=== PATIENT | female | born 1995 | race Caucasian/White ===

== ENCOUNTER 2016-06-25 19:57 | Emergency (ER) | payer OTHER, MEDICAID ==
[2016-06-25] MEDS ORDERED: SODIUM CHLORIDE 0.9% 1,000 ML IV ONE (20:54)
[2016-06-25] MEDS ORDERED: ONDANSETRON 4 MG/2 ML VIAL IVP STA (22:18)
[2016-06-25] MEDS ORDERED: ONDANSETRON 4 MG/2 ML VIAL ONE (22:39)
[2016-06-25] MEDS ORDERED: ONDANSETRON ODT 4 MG Prepack 2 TL PRN (23:13)
[2016-06-25] MEDS ORDERED: ONDANSETRON ODT 4 MG Prepack 2 TL ONE (23:15)
== END 2016-06-25 23:35 | disposition home or self-care (01) ==
DX: K52.9 Noninfective gastroenteritis and colitis, unspecified (principal)

== ENCOUNTER 2016-08-14 15:38 | Emergency (ER) | payer OTHER, MEDICAID | END 2016-08-14 16:45 | disposition left against medical advice (07) | DX: R10.30 Lower abdominal pain, unspecified (principal); Z53.21 Procedure and treatment not carried out due to patient leaving prior to being seen by health care provider ==

== ENCOUNTER 2016-08-31 11:42 | Emergency (ER) | payer OTHER, MEDICAID ==
[2016-08-31 11:46] VITALS: BP 115/60
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
[2016-08-31] MEDS ORDERED: ACETAMINOPHEN 325 MG TABLET PO ONE (12:30)
[2016-08-31] MEDS ORDERED: IBUPROFEN 600 MG TABLET PO ONE (12:30)
[2016-08-31] MEDS: IBUPROFEN 600 MG TABLET PO STA (12:33)
[2016-08-31] MEDS: ACETAMINOPHEN 325 MG TABLET PO STA (12:33)
--- NOTE | 2016-08-31 13:15 | XRAY Preliminary Report ---
Exam: XR Chest 2 View PA/LAT IMPRESSION: Negative 2-view chest radiography. [facility] SITE ID: [id number]
--- NOTE | 2016-08-31 13:17 | XRAY Report ---
EXAM: CHEST RADIOGRAPHY EXAM DATE: 08/31/2016 12:47 PM. CLINICAL HISTORY: Pain with breathing left side. COMPARISON: None. TECHNIQUE: 2 views. FINDINGS: Lungs/Pleura: No focal opacities evident. No pleural effusion. No pneumothorax. Normal volumes. Mediastinum: Heart and mediastinal contours are unremarkable. Bony thorax: Unremarkable. IMPRESSION: Negative 2-view chest radiography. [facility] Referring Provider Line: [phone] SITE ID: [id number]
== END 2016-08-31 12:58 | disposition home or self-care (01) ==
LOC: ED 11:42
DX: S00.83XA Contusion of other part of head, initial encounter (principal); S40.022A Contusion of left upper arm, initial encounter; R07.89 Other chest pain; Y04.2XXA Assault by strike against or bumped into by another person, initial encounter
CPT/HCPCS: 71020; 99283

== ENCOUNTER 2016-11-27 14:29 | Emergency (ER) | payer OTHER, MEDICAID ==
--- NOTE | 2016-11-27 14:31 | ED Physician Documentation ---
PD HPI NVD - Stated complaint Stated Complaint: VOMITING - History obtained from History obtained from: Patient - History of Present Illness Timing - onset: Yesterday Timing - duration: Days (2-3 days of nausea, then with vomiting last night and some today. Had eaten a lot of cake prior to onset of nausea. Also had some marijuana, which she had not had for 2 years. Had nausea and vomiting, but has persisted. No diarrhea. She had normal recent period, but is concerned about potential . No dysuria.) Timing - details: Gradual onset, Waxing and waning Associated symptoms: Loss of appetite. No: Fever, Abdominal pain, Chest pain, Near syncope / syncope, Weight loss, Dysuria, Vaginal bleeding Contributing factors: No: Sick contact, Bad food, Travel, Recent antibiotics, Alcohol use (but had some marijuana use prior to onset symptoms.) Improved by: No: Eating, Vomiting Worsened by: Eating Similar symptoms before: Diagnosis () Recently seen: Not recently seen Review of Systems Constitutional: denies: Fever, Chills Nose: denies: Rhinorrhea / runny nose, Congestion Throat: denies: Sore throat Respiratory: denies: Cough GI: reports: Nausea, Vomiting. 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 HEENT: Myringotomy (tubes), Tonsil/Adenoidectomy - Present Medications Home Medications: Ambulatory Orders Medication Instructions Recorded Confirmed Ondansetron Odt [Zofran] 4 mg TL Q6H PRN #10 tablet 06/25/16 Ibuprofen [Motrin] 600 mg PO TID #20 tab 08/31/16 Tramadol HCl 50 mg PO Q6H PRN #20 tablet 08/31/16 Ondansetron Odt [Zofran] 4 mg TL Q6H PRN #15 tablet 11/27/16 - Allergies Allergies/Adverse Reactions: Allergies Allergy/AdvReac Type Severity Reaction Status Date / Time No Known Drug Allergies Allergy Verified 11/27/16 14:42 - Social History Does the pt smoke?: No Smoking Status: Never smoker Does the pt drink ETOH?: No Does the pt have substance abuse?: No - Immunizations Immunizations are current?: Yes - POLST Patient has POLST: No PD ED PE NORMAL - Vitals Vital signs reviewed: Yes - General General: Alert and oriented X 3, No acute distress, Well developed/nourished - HEENT HEENT: Moist mucous membranes, Pharynx benign - Neck Neck: Supple, no meningeal sign, No adenopathy - Cardiac Cardiac: RRR (mild tachy), No murmur - Respiratory Respiratory: Clear bilaterally - Abdomen Abdomen: Normal bowel sounds, Soft, Non tender, Non distended, No organomegaly - Female Female : Deferred - Rectal Rectal: Deferred - Back Back: No CVA TTP - Derm Derm: Normal color, Warm and dry - Neuro Neuro: Alert and oriented X 3, No motor deficit, Normal speech Results - Vitals Vitals: Vital Signs - 24 hr 11/27/16 14:32 Temperature 36.6 C Heart Rate 112 H Respiratory 18 Rate Blood Pressure 131/78 H O2 Saturation 97 Oxygen O2 Source Room air - Labs Labs: Laboratory Tests 11/27/16 15:00 Urine Color YELLOW Urine Clarity CLEAR Urine pH 6.0 Ur Specific [place] 1.025 Urine Protein NEGATIVE Urine Glucose (UA) NEGATIVE Urine Ketones NEGATIVE Urine Occult Blood NEGATIVE Urine Nitrite NEGATIVE Urine Bilirubin NEGATIVE Urine Urobilinogen 0.2 (NORMAL) Ur Leukocyte Esterase SMALL H Urine RBC None Seen Urine WBC 4-5 Ur Squamous Epith Cells MANY Squamous H Urine Bacteria Moderate H Ur Microscopic Review INDICATED Urine Culture Comments NOT INDICATED Urine HCG, Qual NEGATIVE PD MEDICAL DECISION MAKING - ED course Complexity details: reviewed results, considered differential (she was concerned about possibly with the nausea and vomiting, but Upreg negative. Presume food intolerance from earlier. ), d/w patient Departure - Departure Disposition: 01 Home, Self Care Clinical Impression: Nausea and vomiting Qualifiers: Vomiting type: unspecified Vomiting Intractability: non-intractable Qualified Code(s): R11.2 - Nausea with vomiting, unspecified Condition: Stable Record reviewed to determine appropriate education?: Yes Instructions: ED Nausea Vomiting Follow-Up: Tereza Ellis MD [Primary Care Provider] - Prescriptions: Ondansetron Odt [Zofran] 4 mg TL Q6H PRN #15 tablet PRN Reason: Nausea / Vomiting Comments: Your test is negative. Your urine test does not show infection. I presume the nausea and vomiting was just from an upset stomach. Use Zofran every 4 hours if needed for nausea. Small frequent fluids and bland food for a day or 2. Recheck if not better in the next day or 2. Discharge Date/Time: 11/27/16 15:45
[2016-11-27 14:45] VITALS: BP 131/78
[2016-11-27] MEDS ORDERED: FAMOTIDINE 20 MG TABLET PO STA (14:58)
[2016-11-27] MEDS ORDERED: ONDANSETRON ODT 4 MG TABLET TL STA (14:58)
[2016-11-27] MEDS ORDERED: ONDANSETRON ODT 4 MG TABLET ONE (15:04)
[2016-11-27] MEDS ORDERED: FAMOTIDINE 20 MG TABLET ONE (15:04)
[2016-11-27 15:21] LABS: BILIRUBIN,URINE NEGATIVE (NEGATIVE)
[2016-11-27 15:28] LABS: HCG UR QUAL NEGATIVE; UA w/ MICROSCOPIC CHARGE YES
[2016-11-27 15:48] LABS: UR CULTURE IF IND NOT INDICATED
== END 2016-11-27 15:45 | disposition home or self-care (01) ==
LOC: ED 14:29
DX: R11.2 Nausea with vomiting, unspecified (principal)
CPT/HCPCS: 81001; 81025; 99283; A9270; Q0162; 81003; 87086

== ENCOUNTER 2017-01-26 08:00 | Outpatient (CLI) | payer OTHER, MEDICAID ==
[2017-01-26 19:20] LABS: BASOPHILS % (AUTO) 0.4 %; EOSINOPHILS # (AUTO) 0.1 10^3/uL (0.0-0.7); EOSINOPHILS % (AUTO) 1.7 %; HCT - HEMATOCRIT 42.7 % (37.0-47.0); LYMPHOCYTES # (AUTO) 2.3 10^3/uL (1.5-3.5); MEAN CORPUSCULAR HEMOGLOBIN 28.1 pg (27.0-31.0); MEAN CORPUSCULAR HGB CONC 32.8 g/dL (32.0-36.0); MEAN CORPUSCULAR VOLUME 85.8 fL (81.0-99.0); MEAN PLATELET VOLUME 7.9 fL (7.9-10.8); MONOCYTES # (AUTO) 0.6 10^3/uL (0.0-1.0); MONOCYTES % (AUTO) 11.5 %; NEUTROPHILS # (AUTO) 1.9 10^3/uL (1.5-6.6); NEUTROPHILS % (AUTO) 39.4 %; RED BLOOD COUNT 4.97 10^6/uL (4.20-5.40); RED CELL DISTRIBUTION WIDTH 13.9 % (12.0-15.0); UNCORRECTED WHITE BLOOD COUNT 4.9 x10^3/uL; WHITE BLOOD COUNT 4.9 x10^3/uL (4.8-10.8)
[2017-01-26 19:35] LABS: ALBUMIN/GLOBULIN RATIO 1.3 (1.0-2.2); BILIRUBIN,TOTAL 0.7 mg/dL (0.2-1.0); BUN - BLOOD UREA NITROGEN 12 mg/dL (6-20); CARBON DIOXIDE - CO2 26 mmol/L (21-32); CHLORIDE 101 mmol/L (101-111); CHOLESTEROL 197 mg/dL; CREATININE 0.6 mg/dL (0.4-1.0); GFR - MDRD 126 (>89); GLUCOSE 85 mg/dL (70-100); HDL CHOLESTEROL 65 mg/dL; LDL/HDL RATIO 1.8 (<4.4); POTASSIUM 3.6 mmol/L (3.5-5.0); SODIUM 137 mmol/L (135-145); TRIGLYCERIDES 66 mg/dL; VLDL CHOLESTEROL 13 mg/dL
== END 2017-01-26 08:01 | disposition home or self-care (01) ==
LOC: LAB.N 08:00
PROVIDERS: ATTEND Nurse Practitioner Gerontology
DX: Z13.9 Encounter for screening, unspecified (principal)
CPT/HCPCS: 36415; 80050; 80061

== ENCOUNTER 2017-02-08 13:19 | Emergency (ER) | payer MEDICAID, OTHER ==
[2017-02-08 13:26] VITALS: BP 116/77
[2017-02-08] MEDS ORDERED: cephALEXin 250 MG CAPSULE PO STA (13:35)
--- NOTE | 2017-02-08 13:42 | ED Physician Documentation ---
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 HEENT: Myringotomy (tubes), Tonsil/Adenoidectomy - Present Medications Home Medications: Ambulatory Orders Medication Instructions Recorded Confirmed Cephalexin [Keflex] 500 mg PO Q6H #28 capsule 02/08/17 Sulfamethox/Trimeth 800/160 1 each PO BID #14 tablet 02/08/17 [Bactrim Ds 800/160] - Allergies Allergies/Adverse Reactions: Allergies Allergy/AdvReac Type Severity Reaction Status Date / Time No Known Drug Allergies Allergy Verified 02/08/17 13:25 - Social History Does the pt smoke?: No Smoking Status: Never smoker Does the pt drink ETOH?: No Does the pt have substance abuse?: Yes Substance Use and Type: Marijuana - Immunizations Immunizations are current?: Yes - POLST Patient has POLST: No Results - Vitals Vitals: Vital Signs - 24 hr 02/08/17 13:22 Temperature 36.8 C Heart Rate 72 Respiratory 16 Rate Blood Pressure 116/77 O2 Saturation 99 Oxygen O2 Source Room air Departure - Departure Disposition: 01 Home, Self Care Clinical Impression: Cellulitis Qualifiers: Site of cellulitis: extremity Site of cellulitis of extremity: lower extremity Laterality: right Qualified Code(s): L03.115 - Cellulitis of right lower limb Condition: Good Instructions: ED Infec Skin Cellulitis Follow-Up: Tereza Ellis MD [Primary Care Provider] - (for a recheck if not better in a few days) Prescriptions: Cephalexin [Keflex] 500 mg PO Q6H #28 capsule Sulfamethox/Trimeth 800/160 [Bactrim Ds 800/160] 1 each PO BID #14 tablet Comments: You have no history of infections caused by drug resistant bacteria So I recommend you take keflex four times a day for a week and apply antibiotic ointment three times a day But if the infection is not improving in 48 hr, add the bactrim (in addition to the keflex) for coverage of drug resistant bacteria Follow up with your doctor for a recheck in about 2 days Return to the ER right away if worse Recommend motrin and tylenol for pain
[2017-02-08] MEDS ORDERED: cephALEXin 250 MG CAPSULE PO ONE (13:49)
== END 2017-02-08 13:47 | disposition home or self-care (01) ==
LOC: ED 13:19
DX: L03.115 Cellulitis of right lower limb (principal)
CPT/HCPCS: 99283; A9270

== ENCOUNTER 2017-03-17 12:46 | Outpatient (CLI) | payer MEDICAID | END 2017-03-17 12:47 | disposition EMS.NT | LOC: EMS 12:46 | PROVIDERS: ATTEND Surgery | DX: S00.81XA Abrasion of other part of head, initial encounter (principal); V47.5XXA Car driver injured in collision with fixed or stationary object in traffic accident, initial encounter; Y92.410 Unspecified street and highway as the place of occurrence of the external cause ==

== ENCOUNTER 2017-06-22 12:07 | Emergency (ER) | payer MEDICAID ==
--- NOTE | 2017-06-22 15:14 | ED Physician Documentation ---
PD HPI SKIN - Stated complaint Stated Complaint: SKIN RASH - Chief complaint Chief Complaint: Wound - History obtained from History obtained from: Patient - History of Present Illness Timing - onset: How many days ago (several days of itching skin, initially on legs the spread to whole legs and arms, with some on back now too. Not in palsm nor feet, nor mouth. No vesicles. No URI symptoms. Daughter with similar itching and red bumps for couple days.) Timing - duration: Days Timing - details: Gradual onset, Still present Location: Back, RUE, LUE, RLE, LLE Quality / character: Itchy. 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 06/22/17 - Allergies Allergies/Adverse Reactions: Allergies Allergy/AdvReac Type Severity Reaction Status Date / Time No Known Drug Allergies Allergy Verified 06/22/17 12:26 - Social History Does the pt smoke?: No Smoking Status: Never smoker Does the pt drink ETOH?: No Does the pt have substance abuse?: Yes Substance Use and Type: Marijuana - Immunizations Immunizations are current?: Yes - POLST Patient has POLST: No PD ED PE NORMAL - Vitals Vital signs reviewed: Yes - General General: Alert and oriented X 3, No acute distress, Well developed/nourished - HEENT HEENT: Ears normal, Pharynx benign - Neck Neck: Supple, no meningeal sign, No adenopathy - Cardiac Cardiac: RRR, No murmur - Respiratory Respiratory: Clear bilaterally - Abdomen Abdomen: Soft, Non tender - Derm Derm: Normal color, Warm and dry, Other (discrete scattered red bumps with some excoriations, some are in linear pattern a bit. Mainly legs and arms. No palm, foot, mouth sores. ) - Neuro Neuro: Alert and oriented X 3, No motor deficit, Normal speech Results - Vitals Vitals: Oxygen O2 Source Room air PD MEDICAL DECISION MAKING - ED course Complexity details: considered differential (patterns and symptoms of rash would suggest scabies or flea bites or such. Her daughter with similar rash. ), d/w patient Departure - Departure Disposition: 01 Home, Self Care Clinical Impression: Scabies Bug bites Qualifiers: Encounter type: initial encounter Qualified Code(s): W57.XXXA - Bitten or stung by nonvenomous insect and other nonvenomous arthropods, initial encounter Condition: Stable Record reviewed to determine appropriate education?: Yes Instructions: ED Scabies, ED Bites Bed Bug Prescriptions: Cetirizine [ZyrTEC] 10 mg PO DAILY #20 tablet Dexamethasone [Decadron] 4 mg PO DAILY #5 tablet Permethrin [Elimite] 60 gm TP ONCE #60 cream..g. Comments: This may be reaction to bug bites (mites). Use cetirizine antihistamine and Decadron steroid as directed. Wash her bedding and recent clothing in hot water. A rash pattern like this can be from other bug infestation such as scabies and so we will treat with the topical medication that used once in the shower from head to toe. Follow the bottle directions. Even with that it will still take a few days for the inflammation and itchiness to decrease. Recheck if not improved over 3-4 days. Discharge Date/Time: 06/22/17 15:44
[2017-06-22] MEDS ORDERED: DEXAMETHASONE 10 MG/ML VIAL PO STA (15:28)
[2017-06-22] MEDS ORDERED: CETIRIZINE 10 MG TABLET PO STA (15:28)
[2017-06-22 15:45] VITALS: BP 116/71
== END 2017-06-22 15:44 | disposition home or self-care (01) ==
LOC: ED 12:07
DX: B86 Scabies (principal)
CPT/HCPCS: 99283; A9270

== ENCOUNTER 2017-07-03 18:17 | Emergency (ER) | payer MEDICAID ==
--- NOTE | 2017-07-03 19:36 | ED Physician Documentation ---
History of Present Illness - Stated complaint Stated Complaint: EAR PX - Chief complaint Chief Complaint: Heent - History obtained from History obtained from: Patient - History of Present Illness Timing: Other (She has a couple of complaints, ongoing rash previously diagnosed as scabies. He got better after treatment with permethrin but recurred of a couple of weeks ago. Now she has had about a week's worth of productive cough and nasal congestion and 4 days of severe right and left ear pain and plugged ears without fevers. 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 06/22/17 Albuterol Sulfate [Proventil Hfa 1 - 2 puffs IH Q4H PRN #1 07/03/17 Inhaler] hfa.aer.ad Amoxicillin 500 mg PO TID #30 capsule 07/03/17 Permethrin 5% Cream 60 gm TP ONCE #4 cream..g. 07/03/17 - Allergies Allergies/Adverse Reactions: Allergies Allergy/AdvReac Type Severity Reaction Status Date / Time No Known Drug Allergies Allergy Verified 06/22/17 12:26 - Social History Does the pt smoke?: No Smoking Status: Never smoker Does the pt drink ETOH?: No Does the pt have substance abuse?: Yes - Immunizations Immunizations are current?: Yes - POLST Patient has POLST: No PD ED PE NORMAL - Vitals Vital signs reviewed: Yes - General General: Alert and oriented X 3, No acute distress - HEENT HEENT: PERRL, EOMI, Other (Bad bilateral otitis media, oropharynx normal.) - Neck Neck: Supple, no meningeal sign, No bony TTP - Cardiac Cardiac: RRR, No murmur - Respiratory Respiratory: No respiratory distress, Other (Mild expiratory wheezes, nonfocal exam otherwise.) - Abdomen Abdomen: Non tender - Derm Derm: Other (Excoriated rash the upper neck and wrist flexor creases consistent with scabies.) - Neuro Neuro: Alert and oriented X 3, Normal speech Results - Vitals Vitals: Vital Signs - 24 hr 07/03/17 18:23 Temperature 36.9 C Heart Rate 90 Respiratory 18 Rate Blood Pressure 127/78 O2 Saturation 100 Oxygen O2 Source Room air Departure - Departure Disposition: Home, Self Care Clinical Impression: Scabies BOM (bilateral otitis media) Qualifiers: Otitis media type: suppurative Chronicity: acute Recurrence: recurrent Spontaneous tympanic membrane rupture: without spontaneous rupture Qualified Code(s): H66.006 - Acute suppurative otitis media without spontaneous rupture of ear drum, recurrent, bilateral Condition: Good Record reviewed to determine appropriate education?: Yes Instructions: ED Scabies, ED Otitis Media Acute Adult Prescriptions: Albuterol Sulfate [Proventil Hfa Inhaler] 1 - 2 puffs IH Q4H PRN #1 hfa.aer.ad PRN Reason: Cough Amoxicillin 500 mg PO TID #30 capsule Permethrin 5% Cream 60 gm TP ONCE #4 cream..g. Comments: Call your doctor to arrange a follow-up appointment, make the next available appointment. In the interim, return anytime if worse or if new symptoms develop.
[2017-07-03 19:39] VITALS: BP 122/82
== END 2017-07-03 19:44 | disposition home or self-care (01) ==
LOC: ED 18:17
DX: B86 Scabies (principal); H66.006 Acute suppurative otitis media without spontaneous rupture of ear drum, recurrent, bilateral
CPT/HCPCS: 99283

== ENCOUNTER 2017-12-01 17:30 | Emergency (ER) | payer MEDICAID ==
[2017-12-01 17:51] VITALS: BP 121/69
[2017-12-01 18:03] LABS: BILIRUBIN,URINE NEGATIVE (NEGATIVE); GLUCOSE, URINE (UA) NEGATIVE (NEGATIVE); KETONES,URINE (UA) NEGATIVE (NEGATIVE); LEUKOCYTE ESTERASE, URINE MODERATE (NEGATIVE); NITRITE,URINE NEGATIVE (NEGATIVE); OCCULT BLOOD,URINE NEGATIVE (NEGATIVE); PH,URINE 6.5 PH (5.0-7.5); PROTEIN,URINE NEGATIVE (NEGATIVE); UROBILINOGEN,URINE 0.2 (NORMAL) E.U./dL (NORMAL)
[2017-12-01 18:06] LABS: CLARITY,URINE CLEAR (CLEAR); HCG UR QUAL POSITIVE
[2017-12-01 18:11] LABS: BACTERIA,URINE Few /HPF (None Seen); RBC,URINE 0-5 /HPF (0-5); SQUAMOUS EPITHELIAL CELL,UR MANY Squamous (<= Few)
--- NOTE | 2017-12-01 18:45 | ED Physician Documentation ---
PD HPI HEENT - Stated complaint Stated Complaint: BILAT EAR PX - Chief complaint Chief Complaint: General - History obtained from History obtained from: Patient - History of Present Illness Timing - onset: How many days ago (few days of sinus pressure and nasal congestion, then with couple days of worsening left ear pain. Has had ear infections remotely in the past.) Timing - duration: Days (couple) Timing - details: Gradual onset, Still present Location: Left ear Associated symptoms: Rhinorrhea, Other (frontal sinus pressure.). No: Fever, Congestion, Swollen nodes, Facial swelling, Cough Similar symptoms before: Diagnosis (has had ear infections remotely in the past. ) Recently seen: Not recently seen Review of Systems Constitutional: reports: Myalgias. denies: Fever, Chills Eyes: denies: Photophobia Ears: reports: Ear pain (left) Nose: reports: Congestion, Sinus pressure / pain. denies: Rhinorrhea / runny nose Throat: denies: Dental pain / toothache, Oral lesions / sores, Sore throat Respiratory: denies: Cough GI: denies: Abdominal Pain, Nausea, Vomiting, Diarrhea : reports: Dysuria, Frequency, Missed period (about a week late). 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 06/22/17 Albuterol Sulfate [Proventil Hfa 1 - 2 puffs IH Q4H PRN #1 07/03/17 Inhaler] [email or web address] Amoxicillin 500 mg PO TID #30 capsule 07/03/17 Permethrin 5% Cream 60 gm TP ONCE #4 cream..g. 03/23/18 Cephalexin [Keflex] 500 mg PO TID #20 capsule 12/01/17 Cetirizine [ZyrTEC] 10 mg PO DAILY #10 tablet 12/01/17 Dexamethasone [Decadron] 4 mg PO DAILY #3 tablet 12/01/17 - Allergies Allergies/Adverse Reactions: Allergies Allergy/AdvReac Type Severity Reaction Status Date / Time No Known Drug Allergies Allergy Verified 06/22/17 12:26 - Social History Does the pt smoke?: No Smoking Status: Never smoker Does the pt drink ETOH?: No Does the pt have substance abuse?: Yes - Immunizations Immunizations are current?: Yes - POLST Patient has POLST: No PD ED PE NORMAL - Vitals Vital signs reviewed: Yes - General General: Alert and oriented X 3, Well developed/nourished - HEENT HEENT: Pharynx benign. No: Ears normal (right is okay. left with redness and inflammation of TM. Both sides with old scars of TM noted.) - Neck Neck: Supple, no meningeal sign, No adenopathy - Cardiac Cardiac: RRR, No murmur - Respiratory Respiratory: Clear bilaterally - Abdomen Abdomen: Normal bowel sounds, Soft, Non tender, Non distended - Back Back: No CVA TTP - Derm Derm: Normal color, Warm and dry Results - Vitals Vitals: Vital Signs - 24 hr 12/01/17 17:47 Temperature 37.1 C Heart Rate 80 Respiratory 18 Rate Blood Pressure 121/69 O2 Saturation 100 Oxygen O2 Source Room air - Labs Labs: Laboratory Tests 12/01/17 17:51 Urine Color YELLOW Urine Clarity CLEAR Urine pH 6.5 Ur Specific [place] 1.010 Urine Protein NEGATIVE Urine Glucose (UA) NEGATIVE Urine Ketones NEGATIVE Urine Occult Blood NEGATIVE Urine Nitrite NEGATIVE Urine Bilirubin NEGATIVE Urine Urobilinogen 0.2 (NORMAL) Ur Leukocyte Esterase MODERATE H Urine RBC 0-5 Urine WBC >25 H Ur Squamous Epith Cells MANY Squamous H Urine Bacteria Few Urine Culture Comments NOT INDICATED Urine HCG, Qual POSITIVE PD MEDICAL DECISION MAKING - ED course Complexity details: considered differential (her test is positive. Has otitis media left. Possible UTI. Can treat both with same abx. Has bedside US showing early IUP at 5.6 weeks. No free fluid seen. ), d/w patient - Sepsis Event Vital Signs: Vital Signs - 24 hr 12/01/17 17:47 Temperature 37.1 C Heart Rate 80 Respiratory 18 Rate Blood Pressure 121/69 O2 Saturation 100 Oxygen O2 Source Room air Departure - Departure Disposition: 01 Home, Self Care Clinical Impression: Early stage of , Dysuria Otitis media Qualifiers: Otitis media type: suppurative Chronicity: acute Laterality: left Recurrence: not specified as recurrent Spontaneous tympanic membrane rupture: without spontaneous rupture Qualified Code(s): H66.002 - Acute suppurative otitis media without spontaneous rupture of ear drum, left ear Condition: Stable Record reviewed to determine appropriate education?: Yes Instructions: ED Otitis Media Acute Adult Follow-Up: Marbella Earl DNP [Primary Care Provider] - Prescriptions: Cephalexin [Keflex] 500 mg PO TID #20 capsule Cetirizine [ZyrTEC] 10 mg PO DAILY #10 tablet Dexamethasone [Decadron] 4 mg PO DAILY #3 tablet Comments: Your left ear appears to have an infection. This may be in the sinuses as well or may just be some sinus inflammation. We will treat it with cephalexin antibiotic and cetirizine antihistamine. He can also use Decadron for inflammation of the sinuses and eustachian tube as well. You can add Tylenol if needed for pains. Drink lots of fluids. These are all safe in . Your urine sample is suggestive of mild infection and the cephalexin antibiotic would cover for that. Your test is positive and your bedside ultrasound showed a consistent with about 5-6 weeks. He will want to follow-up with your primary care or CLAIMS ASSOCIATE. Your date of last menstrual period at this point is more accurate than the ultrasound for dates. Recheck if not improving over the next several days. Discharge Date/Time: 12/01/17 19:00
[2017-12-01] MEDS ORDERED: CETIRIZINE 10 MG TABLET PO STA (18:46)
[2017-12-01] MEDS ORDERED: ACETAMINOPHEN 325 MG TABLET PO STA (18:46)
[2017-12-01] MEDS ORDERED: DEXAMETHASONE 10 MG/ML VIAL PO STA (18:46)
[2017-12-01] MEDS ORDERED: cephALEXin 250 MG CAPSULE PO STA (18:46)
[2017-12-01] MEDS ORDERED: CHERRY SYRUP 10 ML UDC PO ONE (18:52)
== END 2017-12-01 19:00 | disposition home or self-care (01) ==
LOC: ED 17:30
DX: O26.891 Other specified pregnancy related conditions, first trimester (principal); R30.0 Dysuria; H66.002 Acute suppurative otitis media without spontaneous rupture of ear drum, left ear; Z3A.01 Less than 8 weeks gestation of pregnancy; Z96.22 Myringotomy tube(s) status
CPT/HCPCS: 81001; 81025; 99283; A9270; 87086

== ENCOUNTER 2017-12-18 11:50 | Outpatient (CLI) | payer MEDICAID | END 2017-12-18 11:51 | disposition home or self-care (01) | LOC: LAB.N 11:50 | PROVIDERS: ATTEND Nurse Practitioner | DX: Z32.01 Encounter for pregnancy test, result positive (principal) | CPT/HCPCS: 36415; 84702 ==

== ENCOUNTER 2017-12-21 08:00 | Outpatient (CLI) | payer MEDICAID | END 2017-12-21 08:01 | LOC: LAB.N 08:00 | PROVIDERS: ATTEND Nurse Practitioner | DX: Z32.01 Encounter for pregnancy test, result positive (principal) | CPT/HCPCS: 36415; 84702 ==

== ENCOUNTER 2017-12-22 21:57 | Emergency (ER) | payer MEDICAID ==
[2017-12-22 22:35] LABS: BILIRUBIN,URINE NEGATIVE (NEGATIVE); GLUCOSE, URINE (UA) NEGATIVE (NEGATIVE); KETONES,URINE (UA) TRACE mg/dL (NEGATIVE); LEUKOCYTE ESTERASE, URINE TRACE (NEGATIVE); NITRITE,URINE NEGATIVE (NEGATIVE); OCCULT BLOOD,URINE NEGATIVE (NEGATIVE); PH,URINE 7.5 PH (5.0-7.5); PROTEIN,URINE NEGATIVE (NEGATIVE); UROBILINOGEN,URINE 2 E.U./dL (NORMAL)
[2017-12-22 22:54] LABS: BASOPHILS % (AUTO) 0.3 %; EOSINOPHILS # (AUTO) 0.1 10^3/uL (0.0-0.7); EOSINOPHILS % (AUTO) 1.1 %; HGB - HEMOGLOBIN 15.4 g/dL (12.0-16.0); LYMPHOCYTES # (AUTO) 1.9 10^3/uL (1.5-3.5); LYMPHOCYTES % (AUTO) 17.5 %; MEAN CORPUSCULAR HEMOGLOBIN 28.9 pg (27.0-31.0); MEAN CORPUSCULAR HGB CONC 34.1 g/dL (32.0-36.0); MEAN CORPUSCULAR VOLUME 84.5 fL (81.0-99.0); MEAN PLATELET VOLUME 7.9 fL (7.9-10.8); MONOCYTES # (AUTO) 1.1 10^3/uL (0.0-1.0); MONOCYTES % (AUTO) 9.7 %; NEUTROPHILS # (AUTO) 7.9 10^3/uL (1.5-6.6); NEUTROPHILS % (AUTO) 71.4 %; PLT - PLATELET COUNT 226 10^3/uL (130-450); RED BLOOD COUNT 5.35 10^6/uL (4.20-5.40); RED CELL DISTRIBUTION WIDTH 13.8 % (12.0-15.0)
[2017-12-22 23:05] LABS: CLARITY,URINE HAZY (CLEAR)
[2017-12-22 23:06] LABS: AMORPHOUS SEDIMENT,UR Moderate /LPF; BACTERIA,URINE Rare /HPF (None Seen); RBC,URINE 0-5 /HPF (0-5); SQUAMOUS EPITHELIAL CELL,UR MOD Squamous (<= Few)
[2017-12-22 23:08] LABS: ALBUMIN 4.3 g/dL (3.2-5.5); ALBUMIN/GLOBULIN RATIO 1.3 (1.0-2.2); BILIRUBIN,TOTAL 0.4 mg/dL (0.2-1.0); CALCIUM 9.4 mg/dL (8.5-10.3); CREATININE 0.6 mg/dL (0.4-1.0); TOTAL PROTEIN 7.5 g/dL (6.7-8.2)
[2017-12-22] MEDS ORDERED: SODIUM CHLORIDE 0.9% 1,000 ML IV ONE (23:10)
[2017-12-23] MEDS ORDERED: ACETAMINOPHEN 325 MG TABLET PO STA (00:15)
[2017-12-23] MEDS ORDERED: NITROFURANTOIN MACRO 100 MG CAPSULE PO STA (00:15)
[2017-12-23] MEDS ORDERED: METOCLOPRAMIDE 10 MG TABLET PO STA (00:20)
[2017-12-23] MEDS ORDERED: diphenhydrAMINE 25 MG CAPSULE PO STA (00:20)
--- NOTE | 2017-12-23 00:30 | Ultrasound Report ---
Reason: preg vag bleeding Procedure Date: 12/23/2017 Accession Number: [id number] / [id number] Procedure: US - OB First Trimester CPT Code: FULL RESULT: EXAM: FIRST TRIMESTER OBSTETRIC ULTRASOUND (Less than 11 weeks) EXAM DATE: 12/22/2017 11:35 PM. CLINICAL HISTORY: Preg vag bleeding. LMP: 10/18/2017. COMPARISONS: None. TECHNIQUE: Transabdominal and transvaginal ultrasound examination with static image documentation. CLINICAL DATES: EGA 9 weeks 2 days with BERNICE 07/25/2018 based on LMP. ASSESSMENT: Gestational Sac: Single intrauterine. Mean gestational sac diameter: 38.9 mm = 9 weeks 1 day. Embryo: CRL (crown-rump length) 17.7 mm = 8 weeks 2 days. Cardiac activity: 169 beats per minute. Yolk sac: 3 mm. Amniotic fluid: Not accurately assessed at this gestational age. Early placenta: Not visible at this gestational age. Other: 2.3 x 0.5 cm perigestational hemorrhage. . MATERNAL STRUCTURES: Uterus: Retroverted. Unremarkable. Cervix: Closed. Right Ovary/Adnexa: The ovary measures 3.0 x 2.8 x 1.7 cm, volume 9 cc. Unremarkable. Left Ovary/Adnexa: The ovary measures 3.2 x 3.0 x 2.8 cm, volume 14 cc. 1.8 cm corpus luteum. Free Fluid: None. Other: None. IMPRESSION: 1. Single viable intrauterine at EGA 8 weeks 2 days with BERNICE 08/01/2018 based on crown-rump length, which is concordant with clinical dates. 2. Assigned dating is BERNICE 07/25/2018 based on LMP. 3. Small perigestational hemorrhage. RADIA
--- NOTE | 2017-12-23 00:32 | ED Physician Documentation ---
PD HPI FEMALE - Stated complaint Stated Complaint: ABD PX/CRAMPING/8 WKS PREG - Chief complaint Chief Complaint: Abd Pain - History obtained from History obtained from: Patient, Family - History of Present Illness Timing - onset: How many days ago (3) Timing - details: Gradual onset, Still present Associated symptoms: Abdominal pain Contributing factors: OB-ETL LEAD History: G (2), P (1) Similar symptoms before: No diagnosis Recently seen: Not recently seen - Additional information Additional information: Patient is a 22 year old female who is presenting to the emergency department for abdominal pain and nausea. patient just recently found out she was but has not had follow up care. Review of Systems Ten Systems: 10 systems reviewed and negative Constitutional: denies: Fever, Chills GI: reports: Abdominal Pain, Nausea. denies: Vomiting, Constipation, Diarrhea : reports: Dysuria, Frequency Skin: denies: Rash, Lesions Neurologic: denies: Generalized weakness PD PAST MEDICAL HISTORY - Past Medical History Past Medical History: No Cardiovascular: None Respiratory: None Endocrine/Autoimmune: None GI: None ETL LEAD: None : None HEENT: None Psych: None Musculoskeletal: None Derm: None - Past Surgical History Past Surgical History: Yes /ETL LEAD: section HEENT: Myringotomy (tubes), Tonsil/Adenoidectomy - Present Medications Home Medications: Ambulatory Orders Medication Instructions Recorded Confirmed Cetirizine [ZyrTEC] 10 mg PO DAILY #20 tablet 06/22/17 Dexamethasone [Decadron] 4 mg PO DAILY #5 tablet 06/22/17 Permethrin [Elimite] 60 gm TP ONCE #60 cream..g. 06/22/17 Albuterol Sulfate [Proventil Hfa 1 - 2 puffs IH Q4H PRN #1 07/03/17 Inhaler] [email or web address] Amoxicillin 500 mg PO TID #30 capsule 07/03/17 Permethrin 5% Cream 60 gm TP ONCE #4 cream..g. 07/03/17 Cephalexin [Keflex] 500 mg PO TID #20 capsule 12/01/17 Cetirizine [ZyrTEC] 10 mg PO DAILY #10 tablet 12/01/17 Dexamethasone [Decadron] 4 mg PO DAILY #3 tablet 12/01/17 Nitrofurantoin Monohyd/M-Cryst 100 mg PO BID 5 Days capsule 12/23/17 [Macrobid 100 mg Capsule] - Allergies Allergies/Adverse Reactions: Allergies Allergy/AdvReac Type Severity Reaction Status Date / Time No Known Drug Allergies Allergy Verified 06/22/17 12:26 - Social History Does the pt smoke?: No Smoking Status: Never smoker Does the pt drink ETOH?: No Does the pt have substance abuse?: Yes - Immunizations Immunizations are current?: Yes - POLST Patient has POLST: No PD ED PE NORMAL - Vitals Vital signs reviewed: Yes - General General: Alert and oriented X 3, No acute distress - HEENT HEENT: Atraumatic - Cardiac Cardiac: RRR, No murmur - Respiratory Respiratory: No respiratory distress - Abdomen Abdomen: Soft - Derm Derm: Normal color, Warm and dry - Extremities Extremities: No deformity - Neuro Neuro: Alert and oriented X 3 PD ED PE EXPANDED - Abdomen Abdomen: Tender to palpation, Generalized/diffuse. No: Rebound, Guarding Results - Vitals Vitals: Vital Signs - 24 hr 12/22/17 12/23/17 22:10 00:23 Temperature 36.4 C L Heart Rate 81 75 Respiratory 18 16 Rate Blood Pressure 120/55 L 128/74 O2 Saturation 100 100 Oxygen O2 Source Room air - Labs Labs: Laboratory Tests 12/22/17 12/22/17 12/22/17 22:24 22:43 22:43 WBC 11.0 H RBC 5.35 Hgb 15.4 Hct 45.2 MCV 84.5 MCH 28.9 MCHC 34.1 RDW 13.8 Plt Count 226 MPV 7.9 Neut # (Auto) 7.9 H Lymph # (Auto) 1.9 Coffee # (Auto) 1.1 H Eos # (Auto) 0.1 Baso # (Auto) 0.0 Absolute Nucleated RBC 0.00 Nucleated RBC % 0.0 Sodium 136 Potassium 3.6 Chloride 101 Carbon Dioxide 25 Anion Gap 10.0 BUN 10 Creatinine 0.6 Estimated GFR (MDRD) 125 Glucose 115 H Calcium 9.4 Total Bilirubin 0.4 AST 20 ALT 18 Alkaline Phosphatase 70 Total Protein 7.5 Albumin 4.3 Globulin 3.2 Albumin/Globulin Ratio 1.3 Lipase 26 HCG, Quant Urine Color YELLOW Urine Clarity HAZY Urine pH 7.5 Ur Specific [place] 1.015 Urine Protein NEGATIVE Urine Glucose (UA) NEGATIVE Urine Ketones TRACE Urine Occult Blood NEGATIVE Urine Nitrite NEGATIVE Urine Bilirubin NEGATIVE Urine Urobilinogen 2 H Ur Leukocyte Esterase TRACE H Urine RBC 0-5 Urine WBC 4-5 Ur Squamous Epith Cells MOD Squamous H Amorphous Sediment Moderate Urine Bacteria Rare Ur Microscopic Review INDICATED Urine Culture Comments NOT INDICATED 12/22/17 22:43 WBC RBC Hgb Hct MCV MCH MCHC RDW Plt Count MPV Neut # (Auto) Lymph # (Auto) Coffee # (Auto) Eos # (Auto) Baso # (Auto) Absolute Nucleated RBC Nucleated RBC % Sodium Potassium Chloride Carbon Dioxide Anion Gap BUN Creatinine Estimated GFR (MDRD) Glucose Calcium Total Bilirubin AST ALT Alkaline Phosphatase Total Protein Albumin Globulin Albumin/Globulin Ratio Lipase HCG, Quant 808064.00 Urine Color Urine Clarity Urine pH Ur Specific [place] Urine Protein Urine Glucose (UA) Urine Ketones Urine Occult Blood Urine Nitrite Urine Bilirubin Urine Urobilinogen Ur Leukocyte Esterase Urine RBC Urine WBC Ur Squamous Epith Cells Amorphous Sediment Urine Bacteria Ur Microscopic Review Urine Culture Comments - Rads (name of study) pelvic ultrasound Radiology: EMP read contemporaneously (viable iup with fhr of 167) PD MEDICAL DECISION MAKING - ED course Complexity details: reviewed old records, reviewed results, re-evaluated patient, considered differential, d/w patient, d/w family ED course: Patient was seen and examined at bedside. labs were drawn, urine was collected and imaging was ordered. When patient returned form imaging she was treated wit h ns bolus, tylenlol, benadryl and reglan. patientwas found to have bacteria in her urine and was started on macrobid. Patient and mother were made aware of the findings and were stable for discharge with outpatient follow up. - Sepsis Event Vital Signs: Vital Signs - 24 hr 12/22/17 12/23/17 22:10 00:23 Temperature 36.4 C L Heart Rate 81 75 Respiratory 18 16 Rate Blood Pressure 120/55 L 128/74 O2 Saturation 100 100 Oxygen O2 Source Room air Departure - Departure Disposition: 01 Home, Self Care Clinical Impression: First trimester , Urinary tract infection Condition: Good Instructions: ED UTI Cystitis Female Follow-Up: Marbella Earl DNP [Primary Care Provider] - Prescriptions: Nitrofurantoin Monohyd/M-Cryst [Macrobid 100 mg Capsule] 100 mg PO BID 5 Days capsule Comments: Your diagnostics today were within normal limits. there was no significant abnormalities on the ultrasound. the fetus is about 8 weeks old. there were a few bacteria in your urine and you are being started on macrobid that you will take twice a day for the next 5 days. You should make sure you stay well hydrated and increase your fluid intake. You should follow up with your doc torfor further care. You may return to the emergency department at any time for new, worsening or uncontrollable symptoms.
[2017-12-23 01:30] VITALS: BP 124/69
== END 2017-12-23 01:30 | disposition home or self-care (01) ==
LOC: ED 21:57
DX: O23.41 Unspecified infection of urinary tract in pregnancy, first trimester (principal); Z3A.08 8 weeks gestation of pregnancy
CPT/HCPCS: 36415; 76801; 76817; 80053; 81001; 83690; 84702; 85025; 96360; 99283; A9270; 81003; 87086

== ENCOUNTER 2017-12-26 22:31 | Emergency (ER) | payer MEDICAID ==
[2017-12-26] MEDS ORDERED: ONDANSETRON 4 MG/2 ML VIAL IVP STA (22:57)
[2017-12-26] MEDS ORDERED: SODIUM CHLORIDE 0.9% 1,000 ML IV ONE (22:57)
--- NOTE | 2017-12-26 22:57 | ED Physician Documentation ---
PD HPI FEMALE - Stated complaint Stated Complaint: VOMITING BLOOD - Chief complaint Chief Complaint: Abd Pain - History obtained from History obtained from: Patient - History of Present Illness Timing - onset: Today Timing - details: Gradual onset, Still present Associated symptoms: Abdominal pain Contributing factors: Similar symptoms before: Work up / diagnostics, Treatment Recently seen: Emergency Dept - Additional information Additional information: Patient is a 22 year old female approximately 9.5 weeks by ultrasound who is presenting to the emergency department for nausea and vomiting. patient states that she has not been able to hold anything down, and she saw some specs of blood in her vomit. Review of Systems Ten Systems: 10 systems reviewed and negative GI: reports: Abdominal Pain, Nausea, Vomiting, Hematemesis : denies: Dysuria, Frequency, Vaginal bleeding PD PAST MEDICAL HISTORY - Past Medical History Cardiovascular: None Respiratory: None Endocrine/Autoimmune: None GI: None VENIPUNCTURIST: None : None HEENT: None Psych: None Musculoskeletal: None Derm: None - Past Surgical History Past Surgical History: Yes /VENIPUNCTURIST: section HEENT: Myringotomy (tubes), Tonsil/Adenoidectomy - Present Medications Home Medications: Ambulatory Orders Medication Instructions Recorded Confirmed Cetirizine [ZyrTEC] 10 mg PO DAILY #20 tablet 06/22/17 Dexamethasone [Decadron] 4 mg PO DAILY #5 tablet 06/22/17 Permethrin [Elimite] 60 gm TP ONCE #60 cream..g. 06/22/17 Albuterol Sulfate [Proventil Hfa 1 - 2 puffs IH Q4H PRN #1 07/03/17 Inhaler] [email or web address] Amoxicillin 500 mg PO TID #30 capsule 07/03/17 Permethrin 5% Cream 60 gm TP ONCE #4 cream..g. 07/03/17 Cephalexin [Keflex] 500 mg PO TID #20 capsule 12/01/17 Cetirizine [ZyrTEC] 10 mg PO DAILY #10 tablet 12/01/17 Dexamethasone [Decadron] 4 mg PO DAILY #3 tablet 12/01/17 Metoclopramide [Reglan] 10 mg PO Q6H #20 tablet 12/23/17 Nitrofurantoin Monohyd/M-Cryst 100 mg PO BID 5 Days capsule 12/23/17 [Macrobid 100 mg Capsule] - Allergies Allergies/Adverse Reactions: Allergies Allergy/AdvReac Type Severity Reaction Status Date / Time No Known Drug Allergies Allergy Verified 06/22/17 12:26 - Social History Does the pt smoke?: No Smoking Status: Never smoker Does the pt drink ETOH?: No Does the pt have substance abuse?: Yes - Immunizations Immunizations are current?: Yes - POLST Patient has POLST: No PD ED PE NORMAL - Vitals Vital signs reviewed: Yes - General General: Alert and oriented X 3, No acute distress - HEENT HEENT: Atraumatic, PERRL - Cardiac Cardiac: RRR - Respiratory Respiratory: No respiratory distress - Abdomen Abdomen: Soft - Derm Derm: Normal color, Warm and dry - Extremities Extremities: No deformity - Neuro Neuro: Alert and oriented X 3 Eye Opening: Spontaneous Motor: Obeys Commands Verbal: Oriented GCS Score: 15 PD ED PE EXPANDED - HEENT HEENT: Dry mucous membranes Results - Vitals Vitals: Vital Signs - 24 hr 12/26/17 12/27/17 22:35 00:30 Temperature 36.2 C L Heart Rate 73 76 Respiratory 18 16 Rate Blood Pressure 109/71 110/70 O2 Saturation 99 98 Oxygen O2 Source Room air Procedures - Bedside sono Bedside sono by EMP: viable iup with fhr of 171 PD MEDICAL DECISION MAKING - ED course Complexity details: reviewed old records, reviewed results, re-evaluated patient, considered differential, d/w patient ED course: Patient was seen and examined at bedside. IV access was gained and patient was treated with fluid bolus and zofran. patient was observed in the emergency department for 3 hours. Patient received two liters of fluid and her vomiting resolved. Patient was treated with lidocaine and maalox with good relief. Bedside sono was performed and was consistent with viable iup with a fhr of 170. Patient was given detailed discharge and follow up instructions and was stable for discharge with outpatient follow up. - Sepsis Event Vital Signs: Vital Signs - 24 hr 12/26/17 12/27/17 22:35 00:30 Temperature 36.2 C L Heart Rate 73 76 Respiratory 18 16 Rate Blood Pressure 109/71 110/70 O2 Saturation 99 98 Oxygen O2 Source Room air Departure - Departure Disposition: 01 Home, Self Care Clinical Impression: Vomiting affecting Condition: Good Instructions: ED Nausea Vomiting Follow-Up: Marbella Earl DNP [Primary Care Provider] - Comments: You should try to stay well hydrated. You can try using raw shamar or shamar candy along with your nausea medication. you should follow up with your doctor if symptoms persist. you may return to the emergency department at any time for new, worsening or uncontrollable symptoms.
[2017-12-27] MEDS ORDERED: LIDOCAINE VISCOUS 2% 15 ML UDC MM STA (00:13)
[2017-12-27] MEDS ORDERED: MAG HYDROX/AL HYDROX/SIMETH 30 ML UDC PO STA (00:13)
[2017-12-27] MEDS ORDERED: SODIUM CHLORIDE 0.9% 1,000 ML IV ONE (00:13)
[2017-12-27 02:17] VITALS: BP 115/62
== END 2017-12-27 02:17 | disposition home or self-care (01) ==
LOC: ED 22:31
DX: O21.9 Vomiting of pregnancy, unspecified (principal); Z3A.09 9 weeks gestation of pregnancy
CPT/HCPCS: 96361; 96374; 99283; A9270

== ENCOUNTER 2018-03-25 10:36 | Outpatient (CLI) | payer MEDICAID | END 2018-03-25 10:37 | disposition home or self-care (01) | LOC: LAB 10:36 | PROVIDERS: ATTEND Obstetrics & Gynecology | DX: Z13.79 Encounter for other screening for genetic and chromosomal anomalies (principal) | CPT/HCPCS: 36415; 81599; 82677; 84163; 84702; 86336 ==

== ENCOUNTER 2018-04-27 15:52 | Outpatient (CLI) | payer MEDICAID ==
--- NOTE | 2018-04-27 17:56 | Ultrasound Report ---
Reason: ENCTR FOR SCREENING Procedure Date: 04/27/2018 Accession Number: [id number] / [id number] Procedure: US - OB Detailed Eval CPT Code: FULL RESULT: EXAM: COMPLETE OBSTETRICAL ULTRASOUND EXAM DATE: 04/27/2018 05:17 PM. CLINICAL HISTORY: anatomic survey. COMPARISON: None 2017. TECHNIQUE: Real-time sonographic evaluation of the fetus performed by the metal die finisher. Multiple containers sales representative static images were saved for review. DATING: Established EGA 26 weeks 1 day with BERNICE 08/02/2018 based on stated dates. EGA 26 weeks 0 days with BERNICE 07/13/2018 based on initial ultrasound. EGA 26 weeks 5 days with BERNICE 07/29/2018 based on the current ultrasound. GENERAL EVALUATION [place] . Cardiac activity: 150 bpm. movement: Visualized. Presentation: Variable Placenta: Anterior position. No evidence for previa. Umbilical cord: 3 vessel cord. Central placental cord origin. Amniotic fluid: Subjectively normal. MVP 6.1 cm. BIOMETRY Bi-Parietal Diameter (BPD): 6.6 cm, 26 weeks 5 days Head Circumference (HC): 25.4 cm, 21 weeks 4 days Abdominal Circumference (AC): 21.7 cm, 26 weeks 1 day Femur Length (FL): 4.9 cm, 26 weeks 2 days Estimated Weight: 930 g, 57th percentile. ANATOMY The intracranial structures, profile, face/nose/lips, spine, 4 chamber heart and outflow tracts, stomach, abdominal wall and cord insertion, diaphragm, kidneys, bladder, and extremities were visualized and demonstrate no abnormality. MATERNAL STRUCTURES Uterus: Unremarkable. Cervix: Long and closed. Transabdominal length 4.5 cm. Right ovary/adnexa: Not seen Left ovary/adnexa: Not seen Free fluid: None. IMPRESSION: 1. [place] live intrauterine with gestational age 26 weeks 5 days based on current ultrasound. 2. Estimated weight is within expected limits for assigned dating. 3. Normal anatomic survey. No anatomic abnormalities are detected at this time. RADIA
== END 2018-04-27 15:53 | disposition home or self-care (01) ==
LOC: DI 15:52
PROVIDERS: ATTEND Obstetrics & Gynecology
DX: Z36.9 Encounter for antenatal screening, unspecified (principal); Z3A.26 26 weeks gestation of pregnancy
CPT/HCPCS: 36415; 76811; 85027; 86850

== ENCOUNTER 2018-04-27 17:32 | Outpatient (CLI) | payer MEDICAID ==
[2018-04-27 17:54] LABS: MEAN CORPUSCULAR HEMOGLOBIN 29.4 pg (27.0-31.0); MEAN CORPUSCULAR HGB CONC 32.4 g/dL (32.0-36.0); MEAN CORPUSCULAR VOLUME 90.7 fL (81.0-99.0); MEAN PLATELET VOLUME 7.5 fL (7.9-10.8); RED BLOOD COUNT 4.77 10^6/uL (4.20-5.40); RED CELL DISTRIBUTION WIDTH 13.8 % (12.0-15.0); WHITE BLOOD COUNT 11.8 x10^3/uL (4.8-10.8)
== END 2018-04-27 17:33 | disposition home or self-care (01) ==
LOC: LAB 17:32
PROVIDERS: ATTEND Obstetrics & Gynecology
DX: Z3A.26 26 weeks gestation of pregnancy (principal)
CPT/HCPCS: 36415; 85027; 86850

== ENCOUNTER 2018-05-04 15:52 | Emergency (ER) | payer MEDICAID ==
--- NOTE | 2018-05-04 16:41 | ED Physician Documentation ---
PD HPI URI - Stated complaint Stated Complaint: FALL/COUGH/CONGESTION - Chief complaint Chief Complaint: Resp - History obtained from History obtained from: Patient - History of Present Illness Timing - onset: Today (This is a previously healthy 22-year-old woman, at 26 weeks gestation whose been sick for about 3 days with cough, runny nose, her eyes were burning and body aches. Today she was getting out of the shower and slipped on a toy and hit her abdominal wall, left lower quadrant on the floor. That was at 3 PM. She denies cramping or bleeding.) Review of Systems Constitutional: reports: Fever, Chills, Fatigue Nose: reports: Rhinorrhea / runny nose, Congestion Throat: denies: Sore throat Respiratory: reports: Cough GI: reports: Nausea, Vomiting. denies: Abdominal Pain PD PAST MEDICAL HISTORY - Past Medical History Past Medical History: No Cardiovascular: None Respiratory: None Neuro: None Endocrine/Autoimmune: None GI: None LEARNING ANALYST: None : None HEENT: None Psych: None Musculoskeletal: None Derm: None - Past Surgical History Past Surgical History: Yes /LEARNING ANALYST: section HEENT: Myringotomy (tubes), Tonsil/Adenoidectomy - Present Medications Home Medications: Ambulatory Orders Medication Instructions Recorded Confirmed Cetirizine [ZyrTEC] 10 mg PO DAILY #20 tablet 06/22/17 Dexamethasone [Decadron] 4 mg PO DAILY #5 tablet 06/22/17 Permethrin [Elimite] 60 gm TP ONCE #60 cream..g. 06/22/17 Albuterol Sulfate [Proventil Hfa 1 - 2 puffs IH Q4H PRN #1 07/03/17 Inhaler] [email or web address] Amoxicillin 500 mg PO TID #30 capsule 07/03/17 Permethrin 5% Cream 60 gm TP ONCE #4 cream..g. 07/03/17 Cephalexin [Keflex] 500 mg PO TID #20 capsule 12/01/17 Cetirizine [ZyrTEC] 10 mg PO DAILY #10 tablet 12/01/17 Dexamethasone [Decadron] 4 mg PO DAILY #3 tablet 12/01/17 Metoclopramide [Reglan] 10 mg PO Q6H #20 tablet 12/23/17 Nitrofurantoin Monohyd/M-Cryst 100 mg PO BID 5 Days capsule 12/23/17 [Macrobid 100 mg Capsule] Oseltamivir [Tamiflu] 75 mg PO BID #10 capsule 05/04/18 - Allergies Allergies/Adverse Reactions: Allergies Allergy/AdvReac Type Severity Reaction Status Date / Time No Known Drug Allergies Allergy Verified 05/04/18 16:03 - Social History Does the pt smoke?: No Smoking Status: Never smoker Does the pt drink ETOH?: No Does the pt have substance abuse?: No - Immunizations Immunizations are current?: Yes - POLST Patient has POLST: No PD ED PE NORMAL - Vitals Vital signs reviewed: Yes - General General: Alert and oriented X 3, No acute distress - HEENT HEENT: PERRL, EOMI, Ears normal, Moist mucous membranes, Pharynx benign - Neck Neck: Supple, no meningeal sign, No bony TTP - Cardiac Cardiac: RRR, No murmur - Respiratory Respiratory: No respiratory distress, Clear bilaterally - Abdomen Abdomen: Soft, Non tender, Other (Outside ultrasound demonstrates single live intrauterine with a heart rate of 158.) - Back Back: No CVA TTP, No spinal TTP - Derm Derm: Normal color, Warm and dry - Extremities Extremities: No edema, No calf tenderness / cord - Neuro Neuro: Alert and oriented X 3, Normal speech - Psych Psych: Normal mood, Normal affect Results - Vitals Vitals: Vital Signs - 24 hr 05/04/18 15:59 Temperature 36.5 C Heart Rate 112 H Respiratory 16 Rate Blood Pressure 122/77 O2 Saturation 99 Oxygen O2 Source Room air - Labs Labs: Laboratory Tests 05/04/18 05/04/18 05/04/18 16:05 16:05 16:40 Urine Color YELLOW Urine Clarity CLEAR Urine pH 6.5 Ur Specific [place] 1.025 Urine Protein NEGATIVE Urine Glucose (UA) NEGATIVE Urine Ketones NEGATIVE Urine Occult Blood NEGATIVE Urine Nitrite NEGATIVE Urine Bilirubin NEGATIVE Urine Urobilinogen 0.2 (NORMAL) Ur Leukocyte Esterase SMALL H Ur Microscopic Review INDICATED Urine Culture Comments Not Reportable Influenza A (Rapid) POSITIVE H Influenza B (Rapid) Negative Group A Strep Rapid Negative PD MEDICAL DECISION MAKING - ED course ED course: This is a 22-year-old woman at 26 weeks with what sounds like a viral syndrome and found to have influenza A. Given the active will treat with Tamiflu. Given the recent abdominal wall trauma I spoke with the on-call OB, Dr. Hess and we agree that continuous monitoring for 6 hours is indicated and they will send down to labor and delivery nurse for same. Took a call little later from the housekeeping attendant and actually the plan is to take her over to labor and delivery for the prolonged monitoring. I wrote her for the Tamiflu. Departure - Departure Disposition: Home, Self Care Clinical Impression: Influenza A, 26 weeks gestation of Abdominal trauma Qualifiers: Encounter type: initial encounter Qualified Code(s): S39.91XA - Unspecified injury of abdomen, initial encounter Condition: Good Record reviewed to determine appropriate education?: Yes Instructions: ED Flu, Medication: Tamiflu (Oseltamivir) Prescriptions: Oseltamivir [Tamiflu] 75 mg PO BID #10 capsule
[2018-05-04] MEDS ORDERED: OSELTAMIVIR 75 MG CAPSULE PO STA (16:44)
[2018-05-04 16:50] LABS: BILIRUBIN,URINE NEGATIVE (NEGATIVE); GLUCOSE, URINE (UA) NEGATIVE (NEGATIVE); KETONES,URINE (UA) NEGATIVE (NEGATIVE); LEUKOCYTE ESTERASE, URINE SMALL (NEGATIVE); NITRITE,URINE NEGATIVE (NEGATIVE); OCCULT BLOOD,URINE NEGATIVE (NEGATIVE); PH,URINE 6.5 PH (5.0-7.5); PROTEIN,URINE NEGATIVE (NEGATIVE); UROBILINOGEN,URINE 0.2 (NORMAL) E.U./dL (NORMAL)
[2018-05-04 16:57] LABS: CLARITY,URINE CLEAR (CLEAR)
[2018-05-04 17:10] LABS: BACTERIA,URINE Many /HPF (None Seen); RBC,URINE 0-5 /HPF (0-5); SQUAMOUS EPITHELIAL CELL,UR MANY Squamous (<= Few)
[2018-05-04 17:51] VITALS: BP 115/71
== END 2018-05-04 17:52 | disposition home or self-care (01) ==
LOC: ED 15:52
DX: O99.512 Diseases of the respiratory system complicating pregnancy, second trimester (principal); J10.1 Influenza due to other identified influenza virus with other respiratory manifestations; O9A.212 Injury, poisoning and certain other consequences of external causes complicating pregnancy, second trimester; S39.91XA Unspecified injury of abdomen, initial encounter; W22.8XXA Striking against or struck by other objects, initial encounter; Y93.E1 Activity, personal bathing and showering; Z3A.26 26 weeks gestation of pregnancy
CPT/HCPCS: 81001; 87070; 87275; 87276; 87430; 99283; A9270; 81003; 87086

== ENCOUNTER 2018-05-04 17:42 | Observation (INO) | payer MEDICAID ==
[2018-05-04] MEDS ORDERED: ACETAMINOPHEN 500 MG TABLET PO SCH (19:27)
--- NOTE | 2018-05-04 20:35 | PROVIDER PROGRESS NOTE ---
Subjective - Prog Note Date Prog Note Date: 05/04/18 Prog Note Time: 20:30 - Subjective Subjective: Ms. Real is a 22-year-old primigravida at blank weeks gestation who is ill with influenza. This morning well exiting the bath tub she stumbled and fell striking the left side of her lower abdomen. Thus far she is no uterine contractions leakage of fluid. She has been seen by the ER physician and cleared. Her ultrasound is unremarkable. She still remains quite ill with influenza. She is transfer to the observation area for 6 hours of monitoring. She has a prior history of pneumonia several years ago. She notes a dry cough and nasal congestion. Influenza swab test is positive. She cannot recall receiving influenza vaccine during this . Her mother and 2 children are both home ill with the flu. Awaiting obstetrics records for review. Objective - Vital Signs/Intake & Output Vital Signs: Vital Signs x48h Temp Pulse Resp BP Pulse Ox 05/04/18 18:58 101.3 F H 121 H 16 97/56 L 97 05/04/18 18:05 127 H 18 113/66 97 Physical Exam - Physical Exam General: positive: Other (Obviously ill) HEENT: positive: Atraumatic, EOMI, Pharynx normal, Dentition normal (Dry dry mucous membranes) Neck: positive: Supple w/out meningeal sx Cardiac: positive: Regular Rate, Murmur Present (Benign murmur ) Resipratory: positive: Clear to ausultation hailey Abdomen: positive: Normal Bowel sounds Extremities: positive: No pedal edema Skin: positive: Warm and dry Neurologic: positive: Alert and Oriented X 3, Normal motor/no weakness, Normal Sensation PSYCH: positive: Anxious Assessment/Plan - Assessment/Plan Assessment: Influenza in generally has a more aggressive course and more symptomatic. There is no obstetrical concern at the current time. Her influenza may be best treated with IV rehydration and supportive care. Patient is previously received Tamiflu. With rehydration there is possibility of pneumonia developing. Plan: Placed in observation status at [facility] IV fluid hydration Tylenol 1000 every 4 hours as needed Repeat electrolytes in the morning Reevaluation in the morning.
[2018-05-04] MEDS ORDERED: SODIUM CHLORIDE FLUSH 0.9% 10 ML SYRINGE IVP PRN (20:53)
[2018-05-04] MEDS ORDERED: ONDANSETRON 4 MG/2 ML VIAL IVP PRN (20:57)
[2018-05-04] MEDS: LACTATED RINGERS 1,000 ML IV SCH (22:15)
[2018-05-04] MEDS ORDERED: BENZOCAINE/MENTHOL LOZENGE MM PRN (23:22)
[2018-05-04] MEDS: ACETAMINOPHEN 325 MG TABLET PO SCH (23:37)
[2018-05-04 23:54] LABS: BASOPHILS % (AUTO) 0.2 %; EOSINOPHILS # (AUTO) 0.1 10^3/uL (0.0-0.7); EOSINOPHILS % (AUTO) 1.5 %; LYMPHOCYTES # (AUTO) 0.7 10^3/uL (1.5-3.5); LYMPHOCYTES % (AUTO) 8.2 %; MEAN CORPUSCULAR HGB CONC 34.6 g/dL (32.0-36.0); MEAN CORPUSCULAR VOLUME 86.7 fL (81.0-99.0); MEAN PLATELET VOLUME 8.2 fL (7.9-10.8); MONOCYTES # (AUTO) 1.1 10^3/uL (0.0-1.0); MONOCYTES % (AUTO) 12.2 %; NEUTROPHILS # (AUTO) 6.8 10^3/uL (1.5-6.6); NEUTROPHILS % (AUTO) 77.9 %; PLT - PLATELET COUNT 200 10^3/uL (130-450); RED BLOOD COUNT 4.33 10^6/uL (4.20-5.40); RED CELL DISTRIBUTION WIDTH 13.6 % (12.0-15.0); WHITE BLOOD COUNT 8.7 x10^3/uL (4.8-10.8)
[2018-05-05 00:06] LABS: ALBUMIN 2.6 g/dL (3.2-5.5); ALBUMIN/GLOBULIN RATIO 0.7 (1.0-2.2); BILIRUBIN,TOTAL 0.2 mg/dL (0.2-1.0); CALCIUM 8.3 mg/dL (8.5-10.3); CREATININE 0.4 mg/dL (0.4-1.0); TOTAL PROTEIN 6.3 g/dL (6.7-8.2)
[2018-05-05] MEDS: guaiFENesin/DEXTROMETHORPHAN 10 ML UDC PO PRN ×2 (00:16→06:05)
[2018-05-05] MEDS: ACETAMINOPHEN 325 MG TABLET PO SCH ×3 (00:16→06:05)
[2018-05-05] MEDS: SODIUM CHLORIDE FLUSH 0.9% 10 ML SYRINGE IVP SCH ×2 (01:01→09:34)
[2018-05-05] MEDS ORDERED: LACTATED RINGERS 500 ML IV ONE (03:33)
[2018-05-05] MEDS: LACTATED RINGERS 1,000 ML IV SCH ×2 (03:39→09:45)
--- NOTE | 2018-05-05 09:55 | Discharge Plan ---
Discharge Plan Disposition: 01 Home, Self Care Condition: Good Diet: Regular Activity Restrictions: Activity as Tolerated Shower Restrictions: No Driving Restrictions: No Weight Bearing: Full Weight Instruction Topics: Preg Flu, Flu No Smoking: If you smoke, Please STOP! Call for help. Follow-up with: Aleksander eHss MD [Provider Admit Priv/Credential] -
--- NOTE | 2018-05-05 10:15 | DISCHARGE SUMMARY ---
Physician: Aleksander Hess MD DATE OF ADMISSION: 05/04/2018 DATE OF DISCHARGE: 05/05/2018 DIAGNOSES 1. Status post fall, striking left abdomen and uterus. 2. Influenza. 3. Dehydration. 4. 26-week gestation. PROCEDURES: None. COMPLICATIONS: None. HISTORY: The patient is a 22-year-old primigravida at 26 weeks' gestation, who is ill with influenza. This morning while exiting the bathtub, she stumbled fell and struck her left abdomen and uterine area. She was evaluated in the emergency room, and there was no orthopedic or notable trauma. An ultrasound was done, reference report. She was placed on observational status so that we could obtain 12 hours of heart tracing and serial observation. She was quite ill with influenza and febrile. She is a swab test positive, and noted to be dehydrated. Reference admission H and P. She had a prior history of pneumonia as a child. HOSPITAL COURSE: Patient was seen in the emergency room and evaluated by Dr. Gillis and his team. Afterwards, she was transferred to observation area for monitoring. My exam finds no uterine tenderness, flaccid uterus, mild left-sided fundal tenderness. No evidence of vaginal bleeding or discharge. heart tracing was category 1 for 26 weeks. She was to begin Tamiflu. We provided a lactated Ringer's for fluid support, and Tylenol for fever. On hospital day 2, she was reevaluated. There was no evidence of pneumonia. Her fever had broken somewhat, but she still was ill as expected. She did feel well enough for discharge, and was prepared. DISCHARGE INSTRUCTIONS: She is instructed to come back to the ER if she feels contractions, vaginal bleeding or leakage of fluid. If she develops shortness of breath, productive cough, she should return to the ER, her PCP's office immediately. She was strongly advised to take the Tamiflu prescribed, as well as Tylenol. MEDICATIONS 1. Tamiflu. 2. Tylenol 1000 mg q.4 hours p.r.n. FOLLOWUP: Patient will be seen in the office in 2-3 weeks. She is cautioned not to return to our offices if she has active flu-like symptoms. TD: 05/05/2018 10:02 [facility]
[2018-05-05 14:34] VITALS: BP 98/55
== END 2018-05-05 15:15 | disposition home or self-care (01) ==
LOC: WFO 17:42 → FBP 17:44 → OBS 18:24 → WFO 21:11
PROVIDERS: ADMIT Obstetrics & Gynecology; ATTEND Obstetrics & Gynecology
DX: O9A.212 Injury, poisoning and certain other consequences of external causes complicating pregnancy, second trimester (principal); S39.91XA Unspecified injury of abdomen, initial encounter; W01.0XXA Fall on same level from slipping, tripping and stumbling without subsequent striking against object, initial encounter; O99.512 Diseases of the respiratory system complicating pregnancy, second trimester; J11.1 Influenza due to unidentified influenza virus with other respiratory manifestations; O99.282 Endocrine, nutritional and metabolic diseases complicating pregnancy, second trimester; E86.0 Dehydration; Z3A.26 26 weeks gestation of pregnancy; Y93.E1 Activity, personal bathing and showering
CPT/HCPCS: 80053; 81001; 85025; 87070; 87275; 87276; 87430; 96360; 96361; 99283; A9270; G0378; J7120; 99213

== ENCOUNTER 2018-06-03 12:34 | Outpatient (CLI) | payer MEDICAID | END 2018-06-03 12:35 | disposition home or self-care (01) | LOC: LAB 12:34 | PROVIDERS: ATTEND Obstetrics & Gynecology | DX: Z3A.26 26 weeks gestation of pregnancy (principal) | CPT/HCPCS: 36415; 82950 ==

== ENCOUNTER 2018-06-22 08:00 | Outpatient (CLI) | payer MEDICAID | END 2018-06-22 23:59 | disposition home or self-care (01) | LOC: LAB.R 08:00 | PROVIDERS: ATTEND Obstetrics & Gynecology | DX: N89.8 Other specified noninflammatory disorders of vagina (principal) | CPT/HCPCS: 87480; 87510; 87660 ==

== ENCOUNTER 2018-07-06 08:00 | Outpatient (CLI) | payer MEDICAID | END 2018-07-06 23:59 | disposition home or self-care (01) | LOC: LAB.R 08:00 | PROVIDERS: ATTEND Obstetrics & Gynecology | DX: Z33.1 Pregnant state, incidental (principal) | CPT/HCPCS: 87491; 87591; 87797 ==

== ENCOUNTER 2018-07-06 14:34 | Outpatient (CLI) | payer MEDICAID ==
[2018-07-07 14:37] LABS: HEPATITIS C ANTIBODY NON-REACTIVE (NON-REACTIVE); HIV AG/AB 4TH GEN NON-REACTIVE (NON-REACTIVE)
== END 2018-07-06 14:35 | disposition home or self-care (01) ==
LOC: LAB 14:34
PROVIDERS: ATTEND Obstetrics & Gynecology
DX: Z33.1 Pregnant state, incidental (principal)
CPT/HCPCS: 36415; 81599; 86592; 86803; 87389; 87491; 87591; 87797

== ENCOUNTER 2018-07-10 10:23 | Outpatient (CLI) | payer MEDICAID ==
[2018-07-10 10:40] VITALS: BP 103/73
--- NOTE | 2018-07-10 14:40 | Ultrasound Report ---
Reason: Right upper calf pain Procedure Date: 07/10/2018 Accession Number: [id number] / [id number] Procedure: US - Duplex Venous Limited CPT Code: FULL RESULT: EXAM: RIGHT LOWER EXTREMITY VENOUS ULTRASOUND EXAM DATE: 07/10/2018 01:05 PM. CLINICAL HISTORY: Right leg pain. COMPARISON: None. TECHNIQUE: Real-time sonographic vascular imaging was performed by the supervisor production through the lower extremity utilizing both color-flow and Doppler spectral analysis. Multiple exhibit display representative static images were saved for review. FINDINGS: Common Femoral Vein (CFV): Normal. CFV-GSV Junction: Normal. Profunda Femoral Vein (PFV): Normal. Femoral Vein (FV) Prox: Normal. Femoral Vein (FV) Mid: Normal. Femoral Vein (FV) Dist: Normal. Popliteal Vein: Normal. Posterior Tibial Veins: Normal. Peroneal Veins: Normal. Contralateral Side CFV: Normal. Other: None. IMPRESSION: No evidence for deep venous thrombosis. RADIA
== END 2018-07-10 14:50 | disposition home or self-care (01) ==
LOC: WFO 10:23 → FBP 10:25 → WFO 14:50
PROVIDERS: ATTEND Obstetrics & Gynecology
DX: O99.89 Other specified diseases and conditions complicating pregnancy, childbirth and the puerperium (principal); R10.9 Unspecified abdominal pain; M79.661 Pain in right lower leg; Z3A.36 36 weeks gestation of pregnancy
CPT/HCPCS: 59025; 93971; 99214

== ENCOUNTER 2018-07-27 11:53 | Outpatient (CLI) | payer MEDICAID ==
[2018-07-27 12:17] LABS: BILIRUBIN,URINE NEGATIVE (NEGATIVE); GLUCOSE, URINE (UA) NEGATIVE (NEGATIVE); KETONES,URINE (UA) NEGATIVE (NEGATIVE); LEUKOCYTE ESTERASE, URINE MODERATE (NEGATIVE); NITRITE,URINE NEGATIVE (NEGATIVE); OCCULT BLOOD,URINE NEGATIVE (NEGATIVE); PH,URINE 7.5 PH (5.0-7.5); PROTEIN,URINE NEGATIVE (NEGATIVE); UROBILINOGEN,URINE 0.2 (NORMAL) E.U./dL (NORMAL)
[2018-07-27 12:19] LABS: CLARITY,URINE CLOUDY (CLEAR)
[2018-07-27 12:19] LABS: BASOPHILS # (AUTO) 0.1 10^3/uL (0.0-0.1); BASOPHILS % (AUTO) 0.6 %; EOSINOPHILS # (AUTO) 0.1 10^3/uL (0.0-0.7); HGB - HEMOGLOBIN 11.7 g/dL (12.0-16.0); LYMPHOCYTES # (AUTO) 1.5 10^3/uL (1.5-3.5); LYMPHOCYTES % (AUTO) 16.1 %; MEAN CORPUSCULAR HEMOGLOBIN 26.1 pg (27.0-31.0); MEAN CORPUSCULAR HGB CONC 32.3 g/dL (32.0-36.0); MEAN CORPUSCULAR VOLUME 80.8 fL (81.0-99.0); MEAN PLATELET VOLUME 8.1 fL (7.9-10.8); MONOCYTES # (AUTO) 1.1 10^3/uL (0.0-1.0); MONOCYTES % (AUTO) 11.5 %; NEUTROPHILS # (AUTO) 6.8 10^3/uL (1.5-6.6); NEUTROPHILS % (AUTO) 70.8 %; PLT - PLATELET COUNT 251 10^3/uL (130-450); RED BLOOD COUNT 4.48 10^6/uL (4.20-5.40); RED CELL DISTRIBUTION WIDTH 14.5 % (12.0-15.0); WHITE BLOOD COUNT 9.5 x10^3/uL (4.8-10.8)
[2018-07-27 12:23] LABS: CALCIUM 8.6 mg/dL (8.5-10.3); CREATININE 0.5 mg/dL (0.4-1.0)
== END 2018-07-27 11:54 | disposition home or self-care (01) ==
LOC: LAB 11:53
PROVIDERS: ATTEND Obstetrics & Gynecology
DX: Z01.812 Encounter for preprocedural laboratory examination (principal); O34.219 Maternal care for unspecified type scar from previous cesarean delivery
CPT/HCPCS: 36415; 80048; 81003; 85025; 86850; 86900; 86901

== ENCOUNTER 2018-07-28 05:00 | Inpatient (IN) | payer MEDICAID ==
[~2018-07-28 05:00] MED LIST: LACTATED RINGERS 1,000 ML IV SCH; ceFAZolin 2 GM in SODIUM CHLORIDE 0.9% 100ML 100 ML IV ONE
[2018-07-28] MEDS ORDERED: SODIUM CHLORIDE FLUSH 0.9% 10 ML SYRINGE ONE ×2 (05:36→06:01)
[2018-07-28] MEDS ORDERED: TETANUS/DIPHTHERIA/PERTUSSIS 0.5 ML SYRINGE IM ONE (07:00)
--- NOTE | 2018-07-28 07:09 | ANESTHESIA ---
Pre-Anesthesia VS, & Labs - Diagnosis previous c/s - Procedure repeat c/s Vital Signs: Temp Pulse Resp BP Pulse Ox 36.8 C 115 H 16 113/44 L 98 07/28/18 05:45 07/28/18 05:45 07/28/18 05:45 07/28/18 05:45 07/28/18 05:45 Height 5 ft 1 in Weight (kg) 81.647 kg Body Mass Index 27.9 - NPO >8 hours - Is Patient ?: Yes - Lab Results Lab results reviewed: Yes Home Medications and Allergies Active Medications Lactated Ringer's (Lr) 1,000 mls @ 0 mls/hr IV .Q0M REYNA Last Admin: 07/28/18 05:59 Dose: 30 mls/hr Sodium Chloride (Normal Saline Flush 0.9%) 10 ml IVP PRN PRN PRN Reason: NEEDED PER PROVIDER ORDERS zofran prn nausea Allergies/Adverse Reactions: Allergies Allergy/AdvReac Type Severity Reaction Status Date / Time No Known Drug Allergies Allergy Verified 05/04/18 16:03 Anes History & Medical History - Anesthetic History Anesthesia Complications: reports: No previous complications - Medical History Cardiovascular: reports: None Pulmonary: reports: Asthma (last used rescue inhalor 4 days ago) Gastrointestinal: reports: None Urinary: reports: None Neuro: reports: None Musculoskeletal: reports: None Endocrine/Autoimmune: reports: None Blood Disorders: reports: None Skin: reports: None Smoking Status: Former smoker (Quit October 2017) Psychosocial: reports: No issues indicated - Surgical History Eyes Ears Nose Throat (EENT): Myringotomy (tubes), Tonsil/Adenoidectomy Gynecologic: section - Obstetrical History : 2 Parity: 1 Events: positive: None Complications: positive: None Exam General: Alert, Oriented x3, Cooperative, No acute distress Dental: WNL Mouth Openin Fingerbreadth Neck Mobility: Normal Mallampati classification: II Thyromental Distance: 4-6 cm Respiratory: Lungs clear, Normal breath sounds, No respiratory distress, No accessory muscle use Cardiovascular: Regular rate, Normal S1, Normal S2, No murmurs Mental/Cognitive Status: Alert/Oriented X3, Normal for patient Plan Anesthesia Type: Spinal Consent for Procedure(s) Verified and Reviewed: Yes Code Status: Attempt Resuscitation ASA classification: 2-Mild systemic disease Is this case an emergency?: No
[2018-07-28] MEDS ORDERED: LACTATED RINGERS 1,000 ML IV ONE (07:29)
[2018-07-28] MEDS ORDERED: ONDANSETRON 4 MG/2 ML VIAL IVP PRN (08:54)
[2018-07-28] MEDS ORDERED: SODIUM CHLORIDE FLUSH 0.9% 10 ML SYRINGE IVP PRN (08:54)
[2018-07-28] MEDS ORDERED: diphenhydrAMINE 25 MG CAPSULE PO PRN (08:54)
[2018-07-28] MEDS ORDERED: ONDANSETRON 4 MG/2 ML VIAL IVP ONE (09:00)
[2018-07-28] MEDS ORDERED: HYDROmorphone 1 MG/ML SYRINGE IM ONE (09:00)
[2018-07-28] MEDS ORDERED: OXYTOCIN 10 UNIT/ML VIAL IV ONE (09:00)
[2018-07-28] MEDS ORDERED: fentaNYL 100 MCG/2 ML VIAL IVP ONE (09:00)
[2018-07-28] MEDS ORDERED: KETOROLAC 30 MG/ML VIAL IVP ONE (09:00)
[2018-07-28] MEDS ORDERED: ACETAMINOPHEN 1,000 MG/100 ML 100 ML IV ONE (09:02)
--- NOTE | 2018-07-28 09:02 | OPERATIVE REPORT ---
Operative Report - General Admit Date: 07/28/18 Planned Procedure: RLTC/S Pre-Op Diagnosis: Term cyesis, prior LTC/S Procedure Performed: RLTC/S Post Op Diagnosis: Same - Procedure Note Primary Surgeon: Aleksander Coley MD Secondary Surgeon: Myah MALDONADO Anesthesia Provider: Min Castillo CRNA Anesthesia Technique: Spinal Pathology: None IV Fluids (mL): 1,300 Estimated Blood Loss (mL): 600 Urine Output (mL): 50 Findings: live infant OP nucal cord X 1 Apgars 9/9 Weight 8 lb 6 oz Complications: none - Other Other Information/Narrative: #[id number]
[2018-07-28] MEDS ORDERED: OXYTOCIN/SODIUM CHLORIDE 500 ML IV ONE (09:03)
[2018-07-28] MEDS: OXYTOCIN/SODIUM CHLORIDE 500 ML IV PRN ×2 (09:30→12:48)
--- NOTE | 2018-07-28 12:03 | OPERATIVE REPORT ---
DATE OF SERVICE: 07/28/2018 Physician: Aleksander Coley MD PREOPERATIVE DIAGNOSES 1. Term cyesis. 2. Previous section. POSTOPERATIVE DIAGNOSES 1. Term cyesis. 2. Previous section. 3. Nuchal cord x1, occiput posterior. PROCEDURE PERFORMED: Repeat low transverse section. SURGEON: Aleksander Coley MD MANAGER [place]: Myah Tinoco CNM. HEALTH OFFICER: Elyssa Castillo CRNA. ANESTHESIA: Spinal. IV FLUIDS: 1300 mL. ESTIMATED BLOOD LOSS: 600 mL. URINE OUTPUT: 50 mL. DRESSING: Wound VAC. FINDINGS: Live male , Apgars 9 and 9, weighing 8 pounds 6 ounces, clear amniotic fluid. Infan t occiput posterior. Nuchal cord x1. PROCEDURE: Following adequate spinal anesthesia, the patient was placed in supine position. At this point, she was prepped and draped in the usual fashion. A timeout was performed, in which time, the patient was identified, with concerns addressed. Following checking the spinal, a Pfannenstiel inci tamera was carried down through the subcutaneous tissue to the fascia. The fascia was incised transver sely, then utilizing blunt and sharp dissection, the fascia was dissected from the rectus abdominis. The linea was split, both superiorly and inferiorly. The rectus was split along the midline. Care was taken to avoid any injury to bowel or bladder. At this point, the bladder retractor was placed a nd there were vessels noted on the left hand side of the uterus. A low transverse uterine incision w as accomplished a #10 blade, bandage scissors as well as finger-spread technique. Care was taken to try and avoid the vessels on the left hand side. The amniotic membranes were then ruptured. The hea d of the infant was lifted out of the pelvis and noted to be occiput posterior drawer, as well as a n uchal cord. Clear amniotic fluid was encountered. The infant was then delivered and following this, the cord was doubly clamped, divided, and the was handed to the nursery team that was standin g by. A segment of cord was saved. Cord blood was obtained. Following this, the placenta was manua lly delivered. The uterus was exteriorized, wrapped in a moist lap, cleansed in the internal portion with a dry lap. Care was taken to try and obtain as much of the membranes as possible. The cervix was dilated with a ring forceps, which was set to the side. The uterus was closed using a running lo cking suture of #0 Vicryl with an imbricating layer of #0 Vicryl. Good hemostasis was observed with the exception of 2 places, which were treated with [id number] of 2-0 Vicryl. A moist lap was p laced over the incision and the uterus was tipped forward, and then the cul-de-sac was suctioned. Es timated blood loss was obtained at this time and following this, the cul-de-sac was irrigated with co pious amounts of sterile saline. The uterus was delivered back in the abdominal cavity. The gutters were irrigated and the wound was reinspected. No further bleeding was noted. The peritoneum was cl osed utilizing 2-0 Vicryl. The rectus was reapproximated with 3 interrupted sutures of 2-0 Vicryl. It was inspected for bleeding, none was noted, so the fascia was closed utilizing a looped 0 PDS. In the subcutaneous tissue, electrocautery was utilized, and no bleeding was noted. The incision itsel f was closed utilizing 4-0 Monocryl subcuticular. The wound VAC was then placed in a sterile fashion . The patient tolerated the procedure well, was taken to recovery in stable condition. Sponge and n eedle counts were correct. TD: 07/28/2018 09:48
[2018-07-28] MEDS: KETOROLAC 30 MG/ML VIAL IVP SCH ×3 (14:19→20:40)
[2018-07-28] MEDS: SODIUM CHLORIDE FLUSH 0.9% 10 ML SYRINGE IVP SCH ×2 (14:20→20:41)
[2018-07-28] MEDS: SIMETHICONE CHEW 80 MG TABLET PO SCH ×2 (14:20→18:08)
[2018-07-28] MEDS: DOCUSATE SODIUM 100 MG CAPSULE PO SCH ×2 (16:13→20:40)
[2018-07-28] MEDS: ACETAMINOPHEN 500 MG TABLET PO SCH ×2 (16:14→16:50)
[2018-07-28] MEDS: LACTATED RINGERS 1,000 ML IV SCH ×2 (16:14→20:21)
[2018-07-28] MEDS: oxyCODONE 5 MG TABLET PO PRN ×2 (16:50→20:40)
[2018-07-29] MEDS: oxyCODONE 5 MG TABLET PO PRN ×6 (00:34→21:26)
[2018-07-29] MEDS: ACETAMINOPHEN 500 MG TABLET PO SCH ×3 (00:34→17:33)
[2018-07-29] MEDS: KETOROLAC 30 MG/ML VIAL IVP SCH (03:22)
[2018-07-29 06:35] LABS: BASOPHILS % (AUTO) 0.3 %; EOSINOPHILS # (AUTO) 0.2 10^3/uL (0.0-0.7); EOSINOPHILS % (AUTO) 1.7 %; HGB - HEMOGLOBIN 10.2 g/dL (12.0-16.0); LYMPHOCYTES # (AUTO) 2.1 10^3/uL (1.5-3.5); LYMPHOCYTES % (AUTO) 21.3 %; MEAN CORPUSCULAR HEMOGLOBIN 26.1 pg (27.0-31.0); MEAN CORPUSCULAR HGB CONC 31.5 g/dL (32.0-36.0); MEAN CORPUSCULAR VOLUME 82.9 fL (81.0-99.0); MEAN PLATELET VOLUME 7.7 fL (7.9-10.8); MONOCYTES # (AUTO) 1.2 10^3/uL (0.0-1.0); MONOCYTES % (AUTO) 11.8 %; NEUTROPHILS # (AUTO) 6.5 10^3/uL (1.5-6.6); NEUTROPHILS % (AUTO) 64.9 %; PLT - PLATELET COUNT 206 10^3/uL (130-450); RED BLOOD COUNT 3.91 10^6/uL (4.20-5.40); RED CELL DISTRIBUTION WIDTH 14.7 % (12.0-15.0)
--- NOTE | 2018-07-29 08:40 | PROVIDER PROGRESS NOTE ---
Subjective - General Admit Date: 07/28/18 Procedure Date: 07/28/18 Post Op Days: 1 Procedure Performed: RLTC/S - Review of Systems Wound/Incisions: positive: Dressing dry and intact General: positive: No symptoms (Pain 6/10. due for pain medication), Fever, Weakness Gastrointestinal: positive: Flatus Genitourinary: positive: No symptoms Objective - Patient Data Reviewed Vital Signs: Yes Vital Signs: Vital Signs x48h Temp Pulse Resp BP Pulse Ox 07/29/18 07:01 16 07/29/18 06:10 16 07/29/18 05:00 15 07/29/18 04:00 16 07/29/18 03:15 36.6 C 93 16 113/72 100 07/29/18 02:00 18 07/29/18 01:00 16 07/29/18 00:50 36.7 C 98 16 100/40 L 97 Weight: Weight 07/27/18 07/28/18 07/29/18 23:59 23:59 23:59 Weight (kg) 81.647 kg Intake & Output: Intake and Output Totals x24h 07/27/18 07/28/18 07/29/18 23:59 23:59 23:59 Intake Total 165 Output Total 475 700 Balance -310 -700 - Lab Results Lab Results: 07/29/18 06:28 Other Lab Results: Lab Results x24hrs 07/29/18 Range/Units 06:28 WBC 10.0 (4.8-10.8) x10^3/uL RBC 3.91 L (4.20-5.40) 10^6/uL Hgb 10.2 L (12.0-16.0) g/dL Hct 32.4 L (37.0-47.0) % MCV 82.9 (81.0-99.0) fL MCH 26.1 L (27.0-31.0) pg MCHC 31.5 L (32.0-36.0) g/dL RDW 14.7 (12.0-15.0) % Plt Count 206 (130-450) 10^3/uL MPV 7.7 L (7.9-10.8) fL Neut # (Auto) 6.5 (1.5-6.6) 10^3/uL Lymph # (Auto) 2.1 (1.5-3.5) 10^3/uL [place]zel # (Auto) 1.2 H (0.0-1.0) 10^3/uL Eos # (Auto) 0.2 (0.0-0.7) 10^3/uL Baso # (Auto) 0.0 (0.0-0.1) 10^3/uL Absolute Nucleated RBC 0.01 x10^3/uL Nucleated RBC % 0.1 /100WBC - Current Medications Current Medications: Current Medications Generic Name Dose Route Start Last Admin Trade Name Freq PRN Reason Stop Dose Admin Acetaminophen 1,000 mg 07/28/18 09:00 07/29/18 00:34 Tylenol PO 1,000 mg Q8H REYNA Administration Docusate Sodium 100 mg 07/28/18 09:00 07/28/18 20:40 Colace 100mg Capsule PO 100 mg BID REYNA Administration Lactated Ringer's 1,000 mls @ 0 mls/hr 07/28/18 03:00 07/28/18 05:59 Lr IV 30 mls/hr .Q0M REYNA Administration TKO Lactated Ringer's 1,000 mls @ 100 mls/hr 07/28/18 09:00 07/28/18 20:21 Lr IV Not Given .Q10H REYNA Oxytocin/Sodium Chloride 500 mls @ 999 mls/hr 07/28/18 08:54 07/28/18 12:48 Pitocin/Sodium Chloride IV 999 milliunit/min PRN PRN 50 mls/hr POST- HEMORR PREVENTION Administration Protocol 999 MILLIUNIT/MIN Ondansetron HCl 4 mg 07/28/18 08:54 07/28/18 14:24 Zofran Inj IVP 4 mg Q4H PRN Administration Nausea / Vomiting Oxycodone HCl 5 mg 07/28/18 08:54 07/29/18 05:07 Roxicodone PO 5 mg Q4HR PRN Administration PAIN Simethicone 80 mg 07/28/18 14:00 07/28/18 18:08 Mylicon PO 80 mg TID REYNA Administration Sodium Chloride 10 ml 07/28/18 09:00 07/28/18 20:41 Normal Saline Flush 0.9% IVP 10 ml 0100,0900,1700 REYNA Administration - Physical Exam Wound/Incisions: positive: Dressing dry and intact (wound vac working) General Appearance: positive: No acute distress, Alert Respiratory: positive: Chest non-tender, No respiratory distress, Breath sounds nml Cardiovascular: positive: Regular rate & rhythm, No murmur, No gallop Back: positive: Nml inspection. negative: CVA tenderness (R), CVA tenderness (L) Skin: positive: Color nml, No rash, Warm, Dry Extremities: negative: Calf tenderness, Tarik's sign/cords Neurologic/Psychiatric: positive: Oriented x3 Impression/Plan - Problem List Problem List: S/P RLTC/S POD #1 progressing well regular diet. changing to orals. Breast Pump Rx given.
[2018-07-29] MEDS: SIMETHICONE CHEW 80 MG TABLET PO SCH ×3 (09:13→21:26)
[2018-07-29] MEDS: DOCUSATE SODIUM 100 MG CAPSULE PO SCH ×2 (09:13→21:26)
[2018-07-29] MEDS: IBUPROFEN 800 MG TABLET PO SCH ×2 (09:13→21:25)
[2018-07-30] MEDS: oxyCODONE 5 MG TABLET PO PRN ×5 (04:33→22:45)
[2018-07-30] MEDS: SIMETHICONE CHEW 80 MG TABLET PO SCH ×3 (07:05→22:29)
--- NOTE | 2018-07-30 08:47 | PROVIDER PROGRESS NOTE ---
Subjective - General Admit Date: 07/28/18 Procedure Date: 07/28/18 Post Op Days: 2 Procedure Performed: RLTC/S - Review of Systems Wound/Incisions: positive: Dressing dry and intact (wound vac working) General: positive: No symptoms (Pt notes Pain increase to 8/10. notes uterine p ain. no stool yet. passing flatus. C/O back pain.), Chills. negative: Fever, Weakness Gastrointestinal: positive: Flatus, Constipation (no stool) Genitourinary: positive: No symptoms Objective - Patient Data Reviewed Vital Signs: Yes Vital Signs: Vital Signs x48h Temp Pulse Resp 07/30/18 04:00 37 C 72 18 07/30/18 02:00 37 C 70 18 Weight: Weight 07/28/18 07/29/18 07/30/18 23:59 23:59 23:59 Weight (kg) 81.647 kg Intake & Output: Intake and Output Totals x24h 07/28/18 07/29/18 07/30/18 23:59 23:59 23:59 Intake Total 165 600 Output Total 475 700 Balance -310 -100 - Lab Results Lab Results: 07/29/18 06:28 - Current Medications Current Medications: Current Medications Generic Name Dose Route Start Last Admin Trade Name Freq PRN Reason Stop Dose Admin Acetaminophen 1,000 mg 07/28/18 09:00 07/29/18 17:33 Tylenol PO 1,000 mg Q8H REYNA Administration Docusate Sodium 100 mg 07/28/18 09:00 07/29/18 21:26 Colace 100mg Capsule PO 100 mg BID REYNA Administration Lactated Ringer's 1,000 mls @ 0 mls/hr 07/28/18 03:00 07/28/18 05:59 Lr IV 30 mls/hr .Q0M REYNA Administration TKO Lactated Ringer's 1,000 mls @ 100 mls/hr 07/28/18 09:00 07/28/18 20:21 Lr IV Not Given .Q10H REYNA Oxytocin/Sodium Chloride 500 mls @ 999 mls/hr 07/28/18 08:54 07/28/18 12:48 Pitocin/Sodium Chloride IV 999 milliunit/min PRN PRN 50 mls/hr POST- HEMORR PREVENTION Administration Protocol 999 MILLIUNIT/MIN Ibuprofen 800 mg 07/29/18 09:00 07/29/18 21:25 Motrin PO 07/30/18 08:59 800 mg Q6H REYNA Administration Ondansetron HCl 4 mg 07/28/18 08:54 07/28/18 14:24 Zofran Inj IVP 4 mg Q4H PRN Administration Nausea / Vomiting Oxycodone HCl 5 mg 07/28/18 08:54 07/30/18 04:33 Roxicodone PO 5 mg Q4HR PRN Administration PAIN Simethicone 80 mg 07/28/18 14:00 07/30/18 07:05 Mylicon PO 80 mg TID REYNA Administration Sodium Chloride 10 ml 07/28/18 09:00 07/28/18 20:41 Normal Saline Flush 0.9% IVP 10 ml 0100,0900,1700 REYNA Administration - Physical Exam Wound/Incisions: positive: Dressing dry and intact, No drainage General Appearance: positive: Alert, Mild distress Respiratory: positive: Chest non-tender, No respiratory distress, Breath sounds nml Cardiovascular: positive: Regular rate & rhythm, No murmur, No gallop Abdomen: positive: Nml bowel sounds, Tenderness (uetrine tenderness. more than with last C/S), Mass (U-2) Back: negative: CVA tenderness (R), CVA tenderness (L) Extremities: negative: Pedal edema, Calf tenderness, Tarik's sign/cords Neurologic/Psychiatric: positive: Oriented x3 Impression/Plan - Problem List Problem List: POD # 2 increased tenderness of the uterus suspect endomyometritis constipation UA blood cultres cbc unisyn
[2018-07-30] MEDS: ACETAMINOPHEN 500 MG TABLET PO SCH ×3 (08:51→17:01)
[2018-07-30] MEDS: DOCUSATE SODIUM 100 MG CAPSULE PO SCH ×2 (08:51→22:28)
[2018-07-30] MEDS ORDERED: MAGNESIUM HYDROXIDE 2,400 MG/30 ML UDC PO PRN (08:56)
[2018-07-30 09:39] LABS: BASOPHILS % (AUTO) 0.3 %; EOSINOPHILS # (AUTO) 0.2 10^3/uL (0.0-0.7); EOSINOPHILS % (AUTO) 2.1 %; HGB - HEMOGLOBIN 10.5 g/dL (12.0-16.0); LYMPHOCYTES # (AUTO) 1.5 10^3/uL (1.5-3.5); LYMPHOCYTES % (AUTO) 14.7 %; MEAN CORPUSCULAR HEMOGLOBIN 26.2 pg (27.0-31.0); MEAN CORPUSCULAR HGB CONC 32.1 g/dL (32.0-36.0); MEAN CORPUSCULAR VOLUME 81.6 fL (81.0-99.0); MEAN PLATELET VOLUME 7.7 fL (7.9-10.8); MONOCYTES # (AUTO) 0.7 10^3/uL (0.0-1.0); MONOCYTES % (AUTO) 7.2 %; NEUTROPHILS # (AUTO) 7.7 10^3/uL (1.5-6.6); NEUTROPHILS % (AUTO) 75.7 %; PLT - PLATELET COUNT 235 10^3/uL (130-450); RED BLOOD COUNT 3.99 10^6/uL (4.20-5.40); RED CELL DISTRIBUTION WIDTH 14.7 % (12.0-15.0); WHITE BLOOD COUNT 10.2 x10^3/uL (4.8-10.8)
[2018-07-30] MEDS: IBUPROFEN 800 MG TABLET PO SCH ×4 (10:13→22:29)
[2018-07-30] MEDS: AMPICILLIN/SULBACTAM 3 GM in SODIUM CHLORIDE 0.9% MINIBAG 100 ML IV SCH ×3 (10:30→22:44)
[2018-07-30] MEDS: SODIUM CHLORIDE FLUSH 0.9% 10 ML SYRINGE IVP SCH ×2 (10:34→16:18)
[2018-07-30] MEDS: SODIUM CHLORIDE FLUSH 0.9% 10 ML SYRINGE IVP PRN ×2 (11:11→22:45)
[2018-07-30 12:30] LABS: BILIRUBIN,URINE NEGATIVE (NEGATIVE); GLUCOSE, URINE (UA) NEGATIVE (NEGATIVE); KETONES,URINE (UA) NEGATIVE (NEGATIVE); LEUKOCYTE ESTERASE, URINE NEGATIVE (NEGATIVE); NITRITE,URINE NEGATIVE (NEGATIVE); OCCULT BLOOD,URINE NEGATIVE (NEGATIVE); PH,URINE 7.5 PH (5.0-7.5); PROTEIN,URINE NEGATIVE (NEGATIVE); UROBILINOGEN,URINE 0.2 (NORMAL) E.U./dL (NORMAL)
[2018-07-30 12:34] LABS: CLARITY,URINE CLEAR (CLEAR)
[2018-07-31] MEDS: ACETAMINOPHEN 500 MG TABLET PO SCH ×3 (01:26→17:13)
[2018-07-31] MEDS: oxyCODONE 5 MG TABLET PO PRN ×3 (04:29→17:13)
[2018-07-31] MEDS: AMPICILLIN/SULBACTAM 3 GM in SODIUM CHLORIDE 0.9% MINIBAG 100 ML IV SCH ×4 (04:30→22:41)
[2018-07-31] MEDS: IBUPROFEN 800 MG TABLET PO SCH ×4 (04:30→22:42)
[2018-07-31] MEDS: SODIUM CHLORIDE FLUSH 0.9% 10 ML SYRINGE IVP PRN (04:31)
[2018-07-31] MEDS: DOCUSATE SODIUM 100 MG CAPSULE PO SCH ×2 (08:56→20:45)
[2018-07-31] MEDS: SIMETHICONE CHEW 80 MG TABLET PO SCH ×3 (08:57→17:56)
[2018-07-31] MEDS: SODIUM CHLORIDE FLUSH 0.9% 10 ML SYRINGE IVP SCH ×2 (10:59→16:36)
--- NOTE | 2018-07-31 11:03 | PROVIDER PROGRESS NOTE ---
Subjective - Subjective Subjective: S: feeling better than yesterday but worse than her prior . Not sure if she feels infected or not. Had a very small BM and would like to go more. + flatus. Feels unable to empty bladder completely. More comes out with valsalva. Mood is OK but is sad missing her daughter at home. VB is a bit more than menses. well. Pain controlled. O: Tmax 100.0 at 08:10. Yesterday Tmax 99.0. On admission 98.2 Standing, in NAD Abd soft, no guarding or rebound. Tender over fundus and not over the upper abdomen Wound vac dressing intact. No surrounding erythema or induration Trace LE edema bilat UA neg, blood cultures neg A/P: 22yo P2 PPD #3 s/p scheduled repeat complicated by endomyometritis. On day #2 of unasyn. Pt reports decreased pain, has mild tenderness, but temp is still elevated today. Will keep for another 24h for ongoing IV abx. Bladder scan for sensation of incomplete emptying Jaime hose and a step stool by the toilet per pt request Rh +, RI, varicella s/p flu vax, Tdap ordered. Objective - Vital Signs/Intake & Output Vital Signs: Vital Signs x48h Temp Pulse Pulse Resp BP Pulse Ox 07/31/18 09:29 98.8 F 07/31/18 08:10 100.0 F H 95 95 18 120/65 97 07/31/18 04:00 98.6 F 99 18 123/51 L 97 Intake & Output: Intake & Output 07/28/18 07/29/18 07/30/18 07/31/18 23:59 23:59 23:59 23:59 Intake Total 165 600 300 100 Output Total 475 700 Balance -310 -100 300 100 - Lab Results Fish Bones: 07/30/18 09:30 Other Labs: Lab Results x24hrs 07/30/18 Range/Units 12:05 Urine Color YELLOW Urine Clarity CLEAR (CLEAR) Urine pH 7.5 (5.0-7.5) PH Ur Specific [place] 1.010 (1.002-1.030) Urine Protein NEGATIVE (NEGATIVE) mg/dL Urine Glucose (UA) NEGATIVE (NEGATIVE) mg/dL Urine Ketones NEGATIVE (NEGATIVE) mg/dL Urine Occult Blood NEGATIVE (NEGATIVE) Urine Nitrite NEGATIVE (NEGATIVE) Urine Bilirubin NEGATIVE (NEGATIVE) Urine Urobilinogen 0.2 (NORMAL) (NORMAL) E.U./dL Ur Leukocyte Esterase NEGATIVE (NEGATIVE)
[2018-07-31] MEDS ORDERED: MAGNESIUM CITRATE 296 ML BOTTLE PO SCH (12:00)
[2018-07-31] MEDS ORDERED: SODIUM CHLORIDE 0.9% MINIBAG 100 ML IV ONE (22:42)
[2018-08-01] MEDS: ACETAMINOPHEN 500 MG TABLET PO SCH ×2 (01:33→09:32)
[2018-08-01] MEDS: IBUPROFEN 800 MG TABLET PO SCH ×2 (04:22→10:18)
[2018-08-01] MEDS: AMPICILLIN/SULBACTAM 3 GM in SODIUM CHLORIDE 0.9% MINIBAG 100 ML IV SCH (04:44)
[2018-08-01] MEDS: SODIUM CHLORIDE FLUSH 0.9% 10 ML SYRINGE IVP PRN (04:45)
[2018-08-01 06:46] LABS: BASOPHILS % (AUTO) 0.4 %; EOSINOPHILS # (AUTO) 0.3 10^3/uL (0.0-0.7); EOSINOPHILS % (AUTO) 4.6 %; HGB - HEMOGLOBIN 10.5 g/dL (12.0-16.0); LYMPHOCYTES # (AUTO) 1.9 10^3/uL (1.5-3.5); LYMPHOCYTES % (AUTO) 25.7 %; MEAN CORPUSCULAR HEMOGLOBIN 26.4 pg (27.0-31.0); MEAN CORPUSCULAR HGB CONC 32.2 g/dL (32.0-36.0); MEAN PLATELET VOLUME 7.1 fL (7.9-10.8); MONOCYTES # (AUTO) 0.7 10^3/uL (0.0-1.0); MONOCYTES % (AUTO) 9.9 %; NEUTROPHILS # (AUTO) 4.4 10^3/uL (1.5-6.6); NEUTROPHILS % (AUTO) 59.4 %; PLT - PLATELET COUNT 265 10^3/uL (130-450); RED BLOOD COUNT 3.99 10^6/uL (4.20-5.40); RED CELL DISTRIBUTION WIDTH 14.9 % (12.0-15.0); WHITE BLOOD COUNT 7.3 x10^3/uL (4.8-10.8)
[2018-08-01] MEDS: SIMETHICONE CHEW 80 MG TABLET PO SCH (09:32)
[2018-08-01] MEDS: DOCUSATE SODIUM 100 MG CAPSULE PO SCH (09:32)
--- NOTE | 2018-08-01 10:25 | Discharge Plan ---
Discharge Plan Disposition: 01 Home, Self Care Condition: Good Diet: Regular Activity Restrictions: Pelvic rest for 6 weeks Shower Restrictions: No Driving Restrictions: No No Smoking: If you smoke, Please STOP! Call for help. Follow-up with: Aleksander Coley MD [Provider Admit Priv/Credential] - 1-2 Days (About - for wound vac removal. RN visit would also be OK. )
[2018-08-01 11:33] VITALS: BP 133/67
[2018-08-01] MEDS: oxyCODONE 5 MG TABLET PO PRN (11:48)
[2018-08-01] MEDS ORDERED: TETANUS/DIPHTHERIA/PERTUSSIS 0.5 ML SYRINGE IM ONE (12:00)
--- NOTE | 2018-08-01 13:01 | Labor Flowsheet ---
Labor Flowsheet Datetime Report Generated by CPN: 08/01/2018 13:00 Datetime: 07/29/2018 04:11 VAGINAL EXAM Membranes Rupture Method: Artificial Amniotic Fluid Color: Clear
--- NOTE | 2018-08-01 15:35 | DISCHARGE SUMMARY ---
Physician: Pili Garcia MD DATE OF ADMISSION: 07/28/2018 DATE OF DISCHARGE: 08/01/2018 ADMISSION DIAGNOSES 1. Intrauterine uterine in the 39th week 2. Prior . DISCHARGE DIAGNOSES 1. Status post repeat section. 2. Endomyometritis. PROCEDURES: Repeat low transverse section performed on 07/28/2018. This was uncomplicated. Apgars were 9 and 9, weight was 8 pounds 6 ounces. ESTIMATED BLOOD LOSS: 600 mL HOSPITAL COURSE: Patient was admitted for her scheduled and underwent this without complic ations. On postoperative day 2, she had a low-grade temperature and excessive abdominal tenderness, and she was started on Unasyn for presumptive endomyometritis. She had a normal UA and her white cou nt was 10.2 at that time with a slight left shift. The patient remained on her Unasyn throughout the rest of her hospitalization. By hospital day number 4, her white count had decreased to 7.3. There was no left shift present. Her maximum temperature had been 99.3 on the date of discharge. Notably , the patient did have her highest temperature every day around 8 a.m. This is consistent with a 99 .3 temperature today, and with her improved clinical picture, white count and exam, I do consider thi s to be a normal temperature. By the time of discharge, patient was eating, ambulating, and urinating and defecating without diffic ulties. She was well and her breasts were feeling okay. She had a normal amount of in cisional and abdominal pain. Her mood was stable. She was afebrile with normal vital signs. She wa s alert with a blunt affect, cuddling her baby, in no apparent distress. Abdomen was soft, appropria tely tender, nondistended. Fundus was firm, nontender and 3 cm below the umbilicus. The wound VAC w as in place. There was no surrounding erythema or induration. Legs were symmetric with trace edema bilaterally and no calf tenderness. Most recent hematocrit is 32.7. DISCHARGE DISPOSITION: Home. CONDITION: Good. FOLLOWUP: Postoperative day 6-8 for wound VAC removal and a mood check. MEDICATIONS 1. Ibuprofen p.r.n. pain. 2. Colace p.r.n. to soften stool. 3. Seven tablets of 5 mg of oxycodone were given. The patient did not use any oxycodone in the last 24 hours. 4. Tdap vaccine given prior to discharge. The patient was not immunized prior. 5. She had received her flu shot. 6. She is rubella immune, varicella status post vaccination and Rh positive. OUTSTANDING LABS: None. TD: 08/01/2018 10:58
== END 2018-08-01 12:30 | disposition home or self-care (01) | DRG 786 ==
LOC: FBP 05:00
PROVIDERS: ADMIT Obstetrics & Gynecology; ATTEND Obstetrics & Gynecology
PROC: 10D00Z1 Extraction of Products of Conception, Low, Open Approach (ICD-10-PCS; principal; 2018-07-28 07:30)
PROC: 3E0234Z Introduction of Serum, Toxoid and Vaccine into Muscle, Percutaneous Approach (ICD-10-PCS; 2018-08-01)
DX: O34.219 Maternal care for unspecified type scar from previous cesarean delivery (principal); O75.3 Other infection during labor; Z3A.39 39 weeks gestation of pregnancy; Z37.0 Single live birth; K59.00 Constipation, unspecified; O99.613 Diseases of the digestive system complicating pregnancy, third trimester; O69.81X0 Labor and delivery complicated by cord around neck, without compression, not applicable or unspecified; Z23 Encounter for immunization
CPT/HCPCS: 36415; 81003; 83605; 85025; 87040; 90715; A9270; J0131; J1170; J7120

== ENCOUNTER 2019-04-03 20:13 | Emergency (ER) | payer MEDICAID ==
[2019-04-03] MEDS ORDERED: SODIUM CHLORIDE 0.9% 1,000 ML IV ONE (20:55)
[2019-04-03] MEDS ORDERED: KETOROLAC 15 MG/ML VIAL IVP STA (20:55)
[2019-04-03] MEDS ORDERED: METOCLOPRAMIDE 10 MG/2 ML VIAL IVP STA (20:55)
--- NOTE | 2019-04-03 21:00 | ED Physician Documentation ---
PD HPI NVD - Stated complaint Stated Complaint: VOM BLOOD/HEADACHE/DIZZY - Chief complaint Chief Complaint: Abd Pain - History obtained from History obtained from: Patient - History of Present Illness Timing - onset: Last night (She got sick last night with vomiting, some upper abdominal pain. No diarrhea. No known sick contacts. No fevers. She also has a headache when she stands up and is feeling weak.) Review of Systems Constitutional: denies: Fever, Chills Nose: denies: Rhinorrhea / runny nose, Congestion Cardiac: denies: Chest pain / pressure, Palpitations Respiratory: denies: Dyspnea, Cough GI: reports: Abdominal Pain, Nausea, Vomiting. 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 : None HEENT: None Psych: None Musculoskeletal: None Derm: None - Past Surgical History Past Surgical History: Yes /ASSEMBLER SURGICAL GARMENT: section HEENT: Myringotomy (tubes), Tonsil/Adenoidectomy - Present Medications Home Medications: Ambulatory Orders Medication Instructions Recorded Confirmed Oseltamivir [Tamiflu] 75 mg PO BID #10 capsule 05/04/18 - Allergies Allergies/Adverse Reactions: Allergies Allergy/AdvReac Type Severity Reaction Status Date / Time No Known Drug Allergies Allergy Verified 04/03/19 20:26 - Social History Does the pt smoke?: No Smoking Status: Former smoker (Quit October 2017) Does the pt drink ETOH?: No Does the pt have substance abuse?: No - Immunizations Immunizations are current?: Yes - POLST Patient has POLST: No PD ED PE NORMAL - Vitals Vital signs reviewed: Yes - General General: Alert and oriented X 3, No acute distress - HEENT HEENT: PERRL, EOMI - Neck Neck: Supple, no meningeal sign, No bony TTP - Cardiac Cardiac: RRR, No murmur - Respiratory Respiratory: No respiratory distress, Clear bilaterally - Abdomen Abdomen: Normal bowel sounds, Soft, Non tender - Back Back: No CVA TTP, No spinal TTP - Neuro Neuro: Alert and oriented X 3, Normal speech Results - Vitals Vitals: Vital Signs - 24 hr 04/03/19 20:26 Temperature 36.5 C Heart Rate 92 Respiratory 14 Rate Blood Pressure 126/71 O2 Saturation 98 Oxygen O2 Source Room air - Labs Labs: Laboratory Tests 04/03/19 04/03/19 04/03/19 21:03 21:40 21:40 WBC 10.0 RBC 5.39 Hgb 14.9 Hct 46.6 MCV 86.5 MCH 27.6 MCHC 32.0 RDW 13.0 Plt Count 213 MPV 9.8 Neut # (Auto) 7.6 H Lymph # (Auto) 1.4 L [place] # (Auto) 0.9 Eos # (Auto) 0.1 Baso # (Auto) 0.0 Absolute Nucleated RBC 0.00 Nucleated RBC % 0.0 Sodium 140 Potassium 3.2 L Chloride 105 Carbon Dioxide 23 Anion Gap 12.0 BUN 17 Creatinine 0.5 Estimated GFR (MDRD) 153 Glucose 90 Calcium 8.5 Total Bilirubin 0.8 AST 16 ALT 16 Alkaline Phosphatase 89 Total Protein 7.0 Albumin 3.9 Globulin 3.1 Albumin/Globulin Ratio 1.3 Lipase 26 Urine Color YELLOW Urine Clarity CLEAR Urine pH 7.0 Ur Specific [place] 1.015 Urine Protein NEGATIVE Urine Glucose (UA) NEGATIVE Urine Ketones 15 H Urine Occult Blood NEGATIVE Urine Nitrite NEGATIVE Urine Bilirubin NEGATIVE Urine Urobilinogen 0.2 (NORMAL) Ur Leukocyte Esterase NEGATIVE Ur Microscopic Review NOT INDICATED Urine Culture Comments NOT INDICATED Urine HCG, Qual NEGATIVE PD MEDICAL DECISION MAKING - ED course ED course: 23-year-old with vomiting, seems like a viral illness. After medication she was pain-free and nausea free passed a p.o. challenge. Departure - Departure Disposition: 01 Home, Self Care Clinical Impression: Vomiting Qualifiers: Vomiting type: unspecified Vomiting Intractability: non-intractable Nausea presence: without nausea Qualified Code(s): R11.11 - Vomiting without nausea Condition: Good Record reviewed to determine appropriate education?: Yes Instructions: ED Nausea Vomiting Comments: Return in 12 to 24 hours if not better, anytime if worse or if new symptoms develop.
[2019-04-03 21:11] LABS: BILIRUBIN,URINE NEGATIVE (NEGATIVE); GLUCOSE, URINE (UA) NEGATIVE (NEGATIVE); KETONES,URINE (UA) 15 mg/dL (NEGATIVE); LEUKOCYTE ESTERASE, URINE NEGATIVE (NEGATIVE); NITRITE,URINE NEGATIVE (NEGATIVE); OCCULT BLOOD,URINE NEGATIVE (NEGATIVE); PROTEIN,URINE NEGATIVE (NEGATIVE); UROBILINOGEN,URINE 0.2 (NORMAL) E.U./dL (NORMAL)
[2019-04-03 21:12] LABS: CLARITY,URINE CLEAR (CLEAR); HCG UR QUAL NEGATIVE
[2019-04-03 21:37] LABS: BASOPHILS % (AUTO) 0.2 %; EOSINOPHILS # (AUTO) 0.1 10^3/uL (0.0-0.7); EOSINOPHILS % (AUTO) 0.9 %; HGB - HEMOGLOBIN 14.9 g/dL (12.0-16.0); LYMPHOCYTES # (AUTO) 1.4 10^3/uL (1.5-3.5); LYMPHOCYTES % (AUTO) 14.3 %; MEAN CORPUSCULAR HEMOGLOBIN 27.6 pg (27.0-31.0); MEAN CORPUSCULAR VOLUME 86.5 fL (81.0-99.0); MEAN PLATELET VOLUME 9.8 fL (7.9-10.8); MONOCYTES # (AUTO) 0.9 10^3/uL (0.0-1.0); MONOCYTES % (AUTO) 8.5 %; NEUTROPHILS # (AUTO) 7.6 10^3/uL (1.5-6.6); NEUTROPHILS % (AUTO) 75.7 %; PLT - PLATELET COUNT 213 10^3/uL (130-450); RED BLOOD COUNT 5.39 10^6/uL (4.20-5.40)
[2019-04-03 21:58] LABS: ALBUMIN 3.9 g/dL (3.2-5.5); ALBUMIN/GLOBULIN RATIO 1.3 (1.0-2.2); BILIRUBIN,TOTAL 0.8 mg/dL (0.2-1.0); CALCIUM 8.5 mg/dL (8.5-10.3); CREATININE 0.5 mg/dL (0.4-1.0)
[2019-04-03] MEDS ORDERED: ONDANSETRON ODT 4 MG Prepack 2 TL STA (22:05)
[2019-04-03 22:17] VITALS: BP 111/62
== END 2019-04-03 22:25 | disposition home or self-care (01) ==
LOC: ED 20:13
DX: R11.10 Vomiting, unspecified (principal); R10.10 Upper abdominal pain, unspecified; R51 Headache; R53.1 Weakness; Z87.891 Personal history of nicotine dependence
CPT/HCPCS: 36415; 80053; 81003; 81025; 83690; 85025; 96361; 96374; 96375; 99283; 99284; J2765; 81001; 87086

== ENCOUNTER 2019-05-28 11:42 | Emergency (ER) | payer MEDICAID ==
[2019-05-28 12:00] VITALS: BP 122/70
--- NOTE | 2019-05-28 12:22 | ED Physician Documentation ---
PD HPI SKIN - Stated complaint Stated Complaint: BUG BITES LOWER EXTREMITY - Chief complaint Chief Complaint: Wound - History obtained from History obtained from: Patient (About a week's worth of itchy lesions on the lower extremities, she wonders if they might be bug bites. No fevers. 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: None : None HEENT: None Psych: None Musculoskeletal: None Derm: None - Past Surgical History Past Surgical History: Yes /PERFORMANCE IMPROVEMENT COORDINATOR: section HEENT: Myringotomy (tubes), Tonsil/Adenoidectomy - Present Medications Home Medications: Ambulatory Orders Medication Instructions Recorded Confirmed Oseltamivir [Tamiflu] 75 mg PO BID #10 capsule 05/04/18 Cephalexin [Keflex] 500 mg PO Q6H #28 capsule 05/28/19 - Allergies Allergies/Adverse Reactions: Allergies Allergy/AdvReac Type Severity Reaction Status Date / Time No Known Drug Allergies Allergy Verified 05/28/19 11:57 - Social History Does the pt smoke?: No Smoking Status: Former smoker (Quit October 2017) Does the pt drink ETOH?: No Does the pt have substance abuse?: No - Immunizations Immunizations are current?: Yes - POLST Patient has POLST: No PD ED PE NORMAL - Vitals Vital signs reviewed: Yes - General General: Alert and oriented X 3, No acute distress - Derm Derm: Other (Nonspecific kind of picked out and excoriated lesions on the lower extremities, few with superinfection, most consistent with infected bug bites.) - Neuro Neuro: Alert and oriented X 3, Normal speech Results - Vitals Vitals: Vital Signs - 24 hr 05/28/19 11:57 Temperature 36.8 C Heart Rate 92 Respiratory 15 Rate Blood Pressure 122/70 O2 Saturation 97 Oxygen O2 Source Room air Departure - Departure Disposition: 01 Home, Self Care Clinical Impression: Bug bite with infection Qualifiers: Encounter type: initial encounter Qualified Code(s): W57.XXXA - Bitten or stung by nonvenomous insect and other nonvenomous arthropods, initial encounter Condition: Good Instructions: ED Sting Bite Insect Infec Prescriptions: Cephalexin [Keflex] 500 mg PO Q6H #28 capsule Comments: Call your doctor to arrange a follow-up appointment, make the next available appointment. In the interim, return anytime if worse or if new symptoms develop.
== END 2019-05-28 12:30 | disposition home or self-care (01) ==
LOC: ED 11:42
DX: L08.9 Local infection of the skin and subcutaneous tissue, unspecified (principal); S80.862A Insect bite (nonvenomous), left lower leg, initial encounter; S80.861A Insect bite (nonvenomous), right lower leg, initial encounter; W57.XXXA Bitten or stung by nonvenomous insect and other nonvenomous arthropods, initial encounter; Z87.891 Personal history of nicotine dependence
CPT/HCPCS: 99282; 99283

== ENCOUNTER 2020-05-11 03:37 | Emergency (ER) | payer MEDICAID ==
[2020-05-11] MEDS ORDERED: HYDROcod/ACETAM 5/325 MG TABLET PO STA (03:56)
[2020-05-11] MEDS ORDERED: CLINDAMYCIN 150 MG CAPSULE PO STA (03:56)
[2020-05-11] MEDS ORDERED: HYDROcod/ACET 5/325 Prepack 4 PO STA (03:57)
--- NOTE | 2020-05-11 04:12 | ED Physician Documentation ---
PD HPI HEENT - Stated complaint Stated Complaint: MOUTH PX - Chief complaint Chief Complaint: Heent - History obtained from History obtained from: Patient - History of Present Illness Timing - onset: How many days ago (2-3) Timing - duration: Days Timing - details: Gradual onset Location: Tooth (left lower premolar) Improves: No: Medication (tried Ibuprofen and warm water. Had leftover Amox from prior something and took 2 tabs.) Worsens: Swalllowing, Temperatures Associated symptoms: Facial swelling. No: Fever, Congestion, Swollen nodes Recently seen: Not recently seen (called [facility] and is hoping to get in tomorrow.) Review of Systems Constitutional: denies: Fever, Chills Nose: denies: Rhinorrhea / runny nose, Congestion Throat: denies: Sore throat Respiratory: denies: Cough Skin: denies: Rash PD PAST MEDICAL HISTORY - Past Medical History Past Medical History: Yes Cardiovascular: None Respiratory: Asthma Neuro: None Endocrine/Autoimmune: None GI: None TOWER ERECTOR: None : None HEENT: None Psych: None Musculoskeletal: None Derm: None - Past Surgical History Past Surgical History: Yes /TOWER ERECTOR: section HEENT: Myringotomy (tubes), Tonsil/Adenoidectomy - Present Medications Home Medications: Ambulatory Orders Medication Instructions Recorded Confirmed Clindamycin [Cleocin] 300 mg PO TID 7 Days #20 capsule 05/11/20 HYDROcod/ACETAM 5/325 [[place] 5/325] 1 ea PO Q6H PRN #15 tablet 05/11/20 Lidocaine Viscous 2% [Xylocaine 1 ml PO Q4H PRN #30 ml 05/11/20 Viscous 2%] buPROPion [Wellbutrin Sr] 150 mg PO DAILY 05/11/20 05/11/20 - Allergies Allergies/Adverse Reactions: Allergies Allergy/AdvReac Type Severity Reaction Status Date / Time No Known Drug Allergies Allergy Verified 05/11/20 03:47 - Social History Does the pt smoke?: No Smoking Status: Never smoker Does the pt drink ETOH?: No Does the pt have substance abuse?: No - Immunizations Immunizations are current?: Yes - POLST Patient has POLST: No PD ED PE NORMAL - Vitals Vital signs reviewed: Yes - General General: Alert and oriented X 3, Well developed/nourished, Other (appears uncomfortable but is calm and pleasant) - HEENT HEENT: No: Dentition benign (left lower premolar with tenderness. Cavity in back side, not seeming amenable shape for temporary filling. There is some swelling of gum without fluctuance. Tender. Left mandible with some swelling. ) - Neck Neck: Supple, no meningeal sign, No adenopathy Results - Vitals Vitals: Vital Signs - 24 hr 05/11/20 05/11/20 05/11/20 03:45 03:50 04:24 Temperature 36.5 C 36.5 C 36.5 C Heart Rate 87 87 84 Respiratory 16 16 16 Rate Blood Pressure 129/75 129/75 127/72 O2 Saturation 96 96 97 Oxygen O2 Source Room air Procedures - Regional nerve block Nerve block site: Inferior alveolar Right / left: Left Nerve block anesthesia: Marcaine 0.25% Nerve block aftercare: Moderate Anesthesia, No complications PD MEDICAL DECISION MAKING - ED course Complexity details: re-evaluated patient, considered differential, d/w patient Departure - Departure Disposition: Home, Self Care Clinical Impression: Pain due to dental caries, Dental infection Condition: Stable Record reviewed to determine appropriate education?: Yes Instructions: ED Abscess Dental Prescriptions: Clindamycin [Cleocin] 300 mg PO TID 7 Days #20 capsule HYDROcod/ACETAM 5/325 [[place] 5/325] 1 ea PO Q6H PRN #15 tablet PRN Reason: Pain Lidocaine Viscous 2% [Xylocaine Viscous 2%] 1 ml PO Q4H PRN #30 ml PRN Reason: Pain Comments: Stay well-hydrated. Use topical numbing medicine such as lidocaine or benzocaine to the tooth area as needed for discomfort. Hopefully the dental block I did will last for several hours and provide some short-term relief of the pain. Clindamycin 3 times a day for a week for the infection. Add some ibuprofen normal dosing 2-3 times a day for pain and inflammation. To that add Tylenol or hydrocodone as needed for worse pain. Follow-up with [facility] dental clinic at their earliest available for more definitive care of the tooth. Discharge Date/Time: 05/11/20 04:24
[2020-05-11 04:26] VITALS: BP 127/72
== END 2020-05-11 04:24 | disposition home or self-care (01) ==
LOC: ED 03:37
DX: K02.9 Dental caries, unspecified (principal); K04.7 Periapical abscess without sinus
CPT/HCPCS: 64400; 99283; A9270

== ENCOUNTER 2020-05-16 13:50 | Emergency (ER) | payer MEDICAID ==
[2020-05-16 14:05] VITALS: BP 116/68
--- NOTE | 2020-05-16 14:12 | ED Physician Documentation ---
PD HPI FEMALE - Stated complaint Stated Complaint: FEMALE - Chief complaint Chief Complaint: UTI - History obtained from History obtained from: Patient - History of Present Illness Timing - onset: How many days ago (several days. Had been on abx for tooth infection and last week had some mild discharge. Seen routine visit by CORN GROWER and had ? of yeast but no treatment. Has now had several days of worsening discharge, labial irritation and pain.) Timing - duration: Days Timing - details: Gradual onset, Still present Associated symptoms: Vaginal pain, Vaginal discharge. No: Fever, Vaginal bleeding, Urinary frequency Contributing factors: Sexually active. No: Exposed to STD Similar symptoms before: Has not had sx before Recently seen: Clinic (dental clinic and had tooth extraction a week ago.) Review of Systems Constitutional: denies: Fever, Chills GI: denies: Abdominal Pain : reports: Discharge. denies: Dysuria, Vaginal bleeding PD PAST MEDICAL HISTORY - Past Medical History Cardiovascular: None Respiratory: Asthma Neuro: None Endocrine/Autoimmune: None GI: None CORN GROWER: None : None HEENT: None Psych: None Musculoskeletal: None Derm: None - Past Surgical History Past Surgical History: Yes /CORN GROWER: section HEENT: Myringotomy (tubes), Tonsil/Adenoidectomy - Present Medications Home Medications: Ambulatory Orders Medication Instructions Recorded Confirmed Clindamycin [Cleocin] 300 mg PO TID 7 Days #20 capsule 05/11/20 05/16/20 HYDROcod/ACETAM 5/325 [[place] 5/325] 1 ea PO Q6H PRN #15 tablet 05/11/20 05/16/20 Lidocaine Viscous 2% [Xylocaine 1 ml PO Q4H PRN #30 ml 05/11/20 05/16/20 Viscous 2%] buPROPion [Wellbutrin Sr] 150 mg PO DAILY 05/11/20 05/16/20 Clotrimazole [3-Day Vaginal Cream] 7 gm VG DAILY 3 Days #21 g 05/16/20 Fluconazole [Diflucan] 150 mg PO Q3D #2 tablet 05/16/20 Lidocaine 1 applic TP QID PRN #15 cream..g. 05/16/20 - Allergies Allergies/Adverse Reactions: Allergies Allergy/AdvReac Type Severity Reaction Status Date / Time No Known Drug Allergies Allergy Verified 05/16/20 14:05 - Social History Does the pt smoke?: No Smoking Status: Never smoker Does the pt drink ETOH?: No Does the pt have substance abuse?: No - Immunizations Immunizations are current?: Yes - POLST Patient has POLST: No PD ED PE NORMAL - Vitals Vital signs reviewed: Yes - General General: Alert and oriented X 3, No acute distress, Well developed/nourished - Female Female : Shake Out Worker present, Other (inner labial redness and mild swelling. No focal ulcerations nor blistering. There is moderate white discharge in vault. No cervicitis seen. ) - Rectal Rectal: Deferred - Back Back: No CVA TTP - Derm Derm: Normal color, Warm and dry Results - Vitals Vitals: Vital Signs - 24 hr 05/16/20 14:02 Temperature 36.0 C L Heart Rate 88 Respiratory 16 Rate Blood Pressure 116/68 O2 Saturation 99 Oxygen O2 Source Room air - Labs Labs: Laboratory Tests 05/16/20 05/16/20 14:20 14:55 Urine Color YELLOW Urine Clarity CLEAR Urine pH 6.5 Ur Specific [place] 1.020 Urine Protein NEGATIVE Urine Glucose (UA) NEGATIVE Urine Ketones NEGATIVE Urine Occult Blood TRACE-INTA Urine Nitrite NEGATIVE Urine Bilirubin NEGATIVE Urine Urobilinogen 0.2 (NORMAL) Ur Leukocyte Esterase SMALL H Urine RBC 0-5 Urine WBC 0-3 Ur Squamous Epith Cells FEW Squamous Urine Bacteria Rare Urine Mucus Few Strands Ur Microscopic Review INDICATED Urine Culture Comments INDICATED Urine HCG, Qual NEGATIVE C. glabrata (PCR) NEGATIVE C. krusei (PCR) NEGATIVE Lacie species DNA POSITIVE A T. vaginalis (PCR) NEGATIVE Bact Vaginosis (PCR) NEGATIVE PD MEDICAL DECISION MAKING - ED course Complexity details: considered differential (appears likely to be yeast vaginitis, but got swab for BV as well. ), d/w patient Departure - Departure Disposition: 01 Home, Self Care Clinical Impression: Yeast vaginitis, Vaginal pain Condition: Stable Record reviewed to determine appropriate education?: Yes Instructions: ED Vaginal Infec Fungal Lacie Prescriptions: Clotrimazole [3-Day Vaginal Cream] 7 gm VG DAILY 3 Days #21 g Fluconazole [Diflucan] 150 mg PO Q3D #2 tablet Lidocaine 1 applic TP QID PRN #15 cream..g. PRN Reason: Pain Comments: This does appear to be a yeast vaginitis. We did do a test to look for bacterial vaginitis as well and that will result in a day or 2. For now we will treat it with antifungal tablets every 3 days for couple of doses. You can use vaginal antifungal cream as well. For the discomfort Tylenol or ibuprofen. You can add lidocaine cream topically to help with discomfort as well. I would anticipate improvement over the next couple of days. Discharge Date/Time: 05/16/20 15:27
[2020-05-16 14:50] LABS: BILIRUBIN,URINE NEGATIVE (NEGATIVE); GLUCOSE, URINE (UA) NEGATIVE (NEGATIVE); KETONES,URINE (UA) NEGATIVE (NEGATIVE); LEUKOCYTE ESTERASE, URINE SMALL (NEGATIVE); NITRITE,URINE NEGATIVE (NEGATIVE); OCCULT BLOOD,URINE TRACE-INTA (NEGATIVE); PH,URINE 6.5 PH (5.0-7.5); PROTEIN,URINE NEGATIVE (NEGATIVE); UROBILINOGEN,URINE 0.2 (NORMAL) E.U./dL (NORMAL)
[2020-05-16 14:53] LABS: CLARITY,URINE CLEAR (CLEAR); HCG UR QUAL NEGATIVE
[2020-05-16 15:01] LABS: BACTERIA,URINE Rare /HPF (None Seen); MUCUS,URINE Few Strands; RBC,URINE 0-5 /HPF (0-5); SQUAMOUS EPITHELIAL CELL,UR FEW Squamous (<= Few)
[2020-05-16] MEDS ORDERED: LIDOCAINE OINTMENT 5% 35.44 GM TUBE TOP STA (15:13)
[2020-05-16] MEDS ORDERED: FLUCONAZOLE 100 MG TABLET PO STA (15:13)
[2020-05-16 17:56] LABS: CANDIDA GROUP DNA POSITIVE (NEGATIVE); CANDIDA KRUSEI DNA NEGATIVE (NEGATIVE); TRICHOMONAS VAGINALIS DNA NEGATIVE (NEGATIVE)
== END 2020-05-16 15:27 | disposition home or self-care (01) ==
LOC: ED 13:50
DX: B37.3 Candidiasis of vulva and vagina (principal); R10.2 Pelvic and perineal pain
CPT/HCPCS: 81001; 81025; 87086; 87481; 87661; 87801; 99283; A9270; 81003

== ENCOUNTER 2023-06-03 18:27 | Outpatient (CLI) | payer MEDICAID | END 2023-06-03 23:59 | disposition short-term general hospital (02) | LOC: EMS 18:27 | DX: Z04.6 Encounter for general psychiatric examination, requested by authority (principal); S51.812A Laceration without foreign body of left forearm, initial encounter; X78.1XXA Intentional self-harm by knife, initial encounter; F32.A Depression, unspecified | CPT/HCPCS: A0425; A0429; A0999 ==

== ENCOUNTER 2023-06-25 20:23 | Outpatient (CLI) | payer MEDICAID | END 2023-06-25 23:59 | disposition home or self-care (01) | LOC: EMS 20:23 | DX: R51.9 Headache, unspecified (principal); S09.93XA Unspecified injury of face, initial encounter; Y33.XXXA Other specified events, undetermined intent, initial encounter ==

== ENCOUNTER 2023-08-04 16:11 | Outpatient (CLI) | payer MEDICAID ==
[2023-08-04 16:43] LABS: BASOPHILS % (AUTO) 0.2 %; EOSINOPHILS # (AUTO) 0.1 10^3/uL (0.0-0.7); EOSINOPHILS % (AUTO) 1.4 %; HCT - HEMATOCRIT 44.4 % (37.0-47.0); HGB - HEMOGLOBIN 14.2 g/dL (12.0-16.0); LYMPHOCYTES # (AUTO) 2.5 10^3/uL (1.5-3.5); LYMPHOCYTES % (AUTO) 29.2 %; MEAN CORPUSCULAR HEMOGLOBIN 27.8 pg (27.0-31.0); MEAN CORPUSCULAR VOLUME 87.1 fL (81.0-99.0); MEAN PLATELET VOLUME 8.9 fL (7.9-10.8); MONOCYTES # (AUTO) 0.6 10^3/uL (0.0-1.0); MONOCYTES % (AUTO) 7.5 %; NEUTROPHILS # (AUTO) 5.3 10^3/uL (1.5-6.6); NEUTROPHILS % (AUTO) 61.5 %; PLT - PLATELET COUNT 294 10^3/uL (130-450); WHITE BLOOD COUNT 8.6 x10^3/uL (4.8-10.8)
[2023-08-05 07:10] LABS: HSV 1 IGG TYPE SPEC <0.91 index (0.00-0.90); HSV 2 IGG TYPE SPEC <0.91 index (0.00-0.90)
[2023-08-05 08:11] LABS: RPR Non Reactive (Non Reactive)
[2023-08-05 20:08] LABS: HEPATITIS B SURFACE AB QUAL Non Reactive (.)
[2023-08-07 00:08] LABS: HCV AB Non Reactive (Non Reactive); HIV SCREEN 4TH GENERATION Non Reactive (Non Reactive)
== END 2023-08-04 16:12 | disposition home or self-care (01) ==
LOC: LAB 16:11
PROVIDERS: ATTEND Nurse Practitioner
DX: R23.8 Other skin changes (principal); Z11.3 Encounter for screening for infections with a predominantly sexual mode of transmission; Z12.4 Encounter for screening for malignant neoplasm of cervix
CPT/HCPCS: 36415; 82728; 85025; 86592; 86695; 86696; 86706; 86803; 87389

== ENCOUNTER 2023-08-05 08:00 | Outpatient (CLI) | payer MEDICAID ==
[2023-08-05 14:26] LABS: CHLAMYDIA TRACHOMATIS DNA NEGATIVE (NEGATIVE); NEISSERIA GONORRHOEAE DNA NEGATIVE (NEGATIVE); TRICHOMONAS VAGINALIS DNA NEGATIVE (NEGATIVE)
== END 2023-08-05 23:59 | disposition home or self-care (01) ==
LOC: LAB.WC 08:00
PROVIDERS: ATTEND Nurse Practitioner
DX: Z11.3 Encounter for screening for infections with a predominantly sexual mode of transmission (principal)
CPT/HCPCS: 87491; 87591; 87661

== ENCOUNTER 2023-09-22 01:18 | Emergency (ER) | payer MEDICAID ==
[2023-09-22 01:34] VITALS: BP 127/90; O2SAT 99
--- NOTE | 2023-09-22 02:04 | ED Physician Documentation ---
PD HPI HEENT - Stated complaint Stated Complaint: TOOTH PX - Chief complaint Chief Complaint: Heent - History obtained from History obtained from: Patient - Additional information Additional information: HPI from patient. Patient complains of tooth pain in the area of a recently chipped right upper to oth. Patient says she grinds her teeth at night and believes this is how she chipped her tooth somewhere in the last 1 to 2 days. She has had gradual onset but steadily worsening pain associated with this tooth. She says it is sensitive to temperature to the point that, during work today, both hot and cold environments were irritating the area. She has taken naproxen without adequate relief of the pain. Denies fever. 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 HEENT: Myringotomy (tubes), Tonsil/Adenoidectomy - Present Medications Home Medications: Ambulatory Orders Medication Instructions Recorded Confirmed Clindamycin [Cleocin] 300 mg PO TID 7 Days #20 capsule 05/11/20 05/16/20 HYDROcod/ACETAM 5/325 [Bexar 5/325] 1 ea PO Q6H PRN #15 tablet 05/11/20 05/16/20 Lidocaine Viscous 2% [Xylocaine 1 ml PO Q4H PRN #30 ml 05/11/20 05/16/20 Viscous 2%] buPROPion [Wellbutrin Sr] 150 mg PO DAILY 05/11/20 05/16/20 Clotrimazole [3-Day Vaginal Cream] 7 gm VG DAILY 3 Days #21 g 05/16/20 Fluconazole [Diflucan] 150 mg PO Q3D #2 tablet 05/16/20 Lidocaine 1 applic TP QID PRN #15 cream..g. 05/16/20 Amox/Clav 875/125 [Augmentin 1 tablet PO Q12H 5 Days #10 tablet 09/22/23 875/125 Tab] HYDROcod/ACETAM 5/325 [Bexar 5/325] 1 - 2 tablet PO Q6H PRN #14 tablet 09/22/23 - Allergies Allergies/Adverse Reactions: Allergies Allergy/AdvReac Type Severity Reaction Status Date / Time No Known Drug Allergies Allergy Verified 09/22/23 01:33 - Social History Does the pt smoke?: No Smoking Status: Never smoker Does the pt drink ETOH?: No Does the pt have substance abuse?: No - Immunizations Immunizations are current?: Yes - POLST Patient has POLST: No PD ED PE NORMAL - Vitals Vital signs reviewed: Yes - General General: Alert and oriented X 3, No acute distress, Well developed/nourished PD ED PE EXPANDED - HEENT HEENT Visual: 1 - deformity (absence of posterior aspect of crown of #5. mild erythema of surrounding gingiva without fluctuance or d/c) Results - Vitals Vitals: Vital Signs - 24 hr 09/22/23 01:29 Temperature 36.3 C L Heart Rate 64 Respiratory 18 Rate Blood Pressure 127/90 H O2 Saturation 99 Oxygen O2 Source Room air PD Medical Decision Making - ED course Complexity details: considered differential, d/w patient ED course: The posterior aspect of tooth #5 is missing. I had the patient swish and spit with 15 mL of Peridex. I then placed CAVIT into the cavity with good result. She is given vicodin 2 tablets for further pain control as well as 875mg augmentin for prophylaxis against infection, and I have electronically submitted prescriptions for both of these medications to her pharmacy of choice. I heavily emphasized the need for her to continue to pursue follow-up with a dentist, as the CAVIT is strictly a temporizing measure Departure - Departure Disposition: 01 Home, Self Care Clinical Impression: Pain, dental Condition: Good Instructions: ED Tooth Pain Prescriptions: Amox/Clav 875/125 [Augmentin 875/125 Tab] 1 tablet PO Q12H 5 Days #10 tablet HYDROcod/ACETAM 5/325 [Bexar 5/325] 1 - 2 tablet PO Q6H PRN #14 tablet PRN Reason: Pain Comments: You were given the first dose of an antibiotic (Augmentin) to help stave off infection. For your pain, you were given 2 tablets of Vicodin (narcotic/opiate pain medication) in the emergency department. Finally, I placed a temporary filling in the cavity; hopefully, this will provide some degree of not only pain relief, but relief from the temperature sensitivity. Realize that this filling typically falls out within no more than a few days. Thus, it is very important that you continue to pursue follow-up with a dentist as soon as can be arranged. I have electronically submitted prescriptions for the Vicodin and Augmentin to [facility] pharmacy in [place] I am prescribing a short course of narcotic pain medication for you. These are potentially dangerous and addictive medications that should be used carefully. These medications may constipate you. Take an [id number]-pyscjgz stool softener (docusate) twice daily with plenty of water while taking these medications. If you go 24 hours without a bowel movement, take [id number] miralax, per package instructions. Do not drink or drive while taking these medications. If you received narcotic or sedating medications while in the emergency d epartment, do not drive for 24 hours. Store this medication in a safe, secure place and out of reach of children. It is a violation of federal law to give or sell this medication to another person or to use in a manner other than prescribed. The ED will not refill narcotic prescriptions, including prescriptions lost or stolen. To dispose of unwanted medications: 1. [facility] at [address] in [place] has a medication drop box. They accept prescription medications (in pill form) Thursday through Thursday 9:00 a.m. to 5:00 p.m. 2. The [employer] [facility] [employer] [facility] [employer] accepts prescription medications (in pill form only) for disposal year round. Call for more information. 3. Contact the [facility] for the next [facility] sponsored prescription drug collection event. , [phone], or [phone]; Forms: Activity restrictions Discharge Date/Time: 09/22/23 03:12
[2023-09-22] MEDS: CHLORHEXIDINE GLUCONATE 15 ML UDC PO STA (02:32)
[2023-09-22] MEDS: AMOX/CLAV 875 MG/125 MG TABLET PO STA (03:08)
[2023-09-22] MEDS: HYDROcod/ACETAM 5/325 MG TABLET PO STA (03:09)
== END 2023-09-22 03:12 | disposition home or self-care (01) ==
LOC: ED 01:18
DX: K02.9 Dental caries, unspecified (principal)
CPT/HCPCS: 99283; A9270